=== PATIENT | female | born 1950 | race Caucasian/White ===

== ENCOUNTER 2018-01-21 20:27 | Inpatient (IN) ==
[2018-01-21 21:54] LABS: Basophils % 0.3 % (0.0-0.8); Eosinophils # 0.1 10*3/uL (0.0-0.87); Eosinophils % 0.7 % (0.00-10.9); Hematocrit 31.8 VOL% (35.7-47.0); Hemoglobin 10.6 GM/DL (12.0-16.0); Immature Granulocytes % 0.3 %; Immature Granulocytes Absolute 0.02 #; Lymphocytes # 0.7 10*3/uL (1.4-4.0); Lymphocytes % 8.8 % (21.3-54.2); Mean Corpuscular HGB Conc 33.3 GM/DL (32-36); Mean Corpuscular Hemoglobin 31 PG (27-34); Mean Corpuscular Volume 92.7 FL (87-102); Mean Platelet Volume 10.5 FL (9.6-12.0); Monocytes # 0.4 10*3/uL (0.11-0.8); Monocytes % 5.5 % (1.7-12.7); Neutrophils # 6.5 10*3/uL (1.4-7.4); Neutrophils % 84.4 % (38.7-73.9); Platelet Count 215 T/CUMM (130-400); Red Blood Count 3.43 MC/CUMM (3.8-5.5); Red Cell Distribution Width 12.9 % (9.3-17.3); White Blood Count 7.6 T/CUMM (4-12)
[2018-01-21 22:09] LABS: Alanine Aminotransferase 24 U/L (13-56); Albumin 3.2 G/DL (3.4-5.0); Alkaline Phosphatase 111 U/L (45-117); Aspartate Amino Transferase 29 U/L (0-37); Blood Urea Nitrogen 12 MG/DL (7-18); Calcium 8.6 MG/DL (8.5-10.1); Glucose 333 MG/DL (74-106); Osmolality,Calculated 287.7 MOS/KG (273-304); Potassium 3.9 MMOL/L (3.5-5.1); Sodium 138 MMOL/L (136-145); Total Protein 6.3 G/DL (6.4-8.3)
[2018-01-21 22:11] LABS: Troponin I 0.144 NG/ML (0.00-0.045)
[2018-01-21 22:14] LABS: INR 0.9; PT Patient Result 9.6 SECS; Partial Thromboplastin Time 21.9 SECS (0-40)
[2018-01-21 22:33] LABS: Apearance,Urine CLEAR (Clear); Bilirubin,Urine Negative (Negative); Blood, Urine Negative (Negative); Glucose,Urine (UA) >=500 mg/dL (Negative); Ketones,Urine 5 mg/dL (Negative); Mucus,Urine Occasional /LPF (Occasional); Nitrite,Urine Negative (Negative); Protein,Urine Negative; RBC,Urine 2 /HPF (0-4); Squamous Epithelial Cell,Urine Occasional /HPF (0-10); Urine Color Straw (Yellow); Urine Specific Gravity 1.017 (1.001-1.035); Urine Urobilinogen < 2.0 EU/DL (0.2-1.0); WBC,Urine 36 /HPF (0-6)
[2018-01-22 10:18] LABS: Blood Urea Nitrogen 10 MG/DL (7-18); Calcium 8.6 MG/DL (8.5-10.1); Glucose 450 MG/DL (74-106); Potassium 3.8 MMOL/L (3.5-5.1); Sodium 136 MMOL/L (136-145)
[2018-01-23 05:17] LABS: Calcium 8.4 MG/DL (8.5-10.1); Osmolality,Calculated 288.5 MOS/KG (273-304); Potassium 3.6 MMOL/L (3.5-5.1)
[2018-01-23 08:23] VITALS: BP 147/78
== END 2018-01-23 11:02 | disposition home or self-care (01) | DRG 292 ==
LOC: EDBD → EDUNIT# → N.ED 20:27 → N.EDINP 22:57 → N.TELES 01-22 00:20
PROVIDERS: ADMIT Internal Medicine Interventional Cardiology; ATTEND Internal Medicine Interventional Cardiology

== ENCOUNTER 2018-05-14 12:10 | Inpatient (IN) ==
[2018-05-14] MEDS ORDERED: FUROSEMIDE 100 MG/10 ML VIAL IV STA (12:31)
[2018-05-14] MEDS ORDERED: hydrALAZINE 20 MG/1 ML VIAL IV STA (12:38)
[2018-05-14] MEDS ORDERED: cloNIDine 0.1 MG TABLET PO STA (12:38)
[2018-05-14 13:22] LABS: Basophils % 0.3 % (0.0-0.8); Eosinophils % 0.1 % (0.00-10.9); Hematocrit 29.9 VOL% (35.7-47.0); Hemoglobin 9.5 GM/DL (12.0-16.0); Immature Granulocytes % 0.4 %; Immature Granulocytes Absolute 0.05 #; Lymphocytes # 0.8 10*3/uL (1.4-4.0); Lymphocytes % 7.5 % (21.3-54.2); Mean Corpuscular HGB Conc 31.8 GM/DL (32-36); Mean Corpuscular Hemoglobin 28 PG (27-34); Mean Corpuscular Volume 86.9 FL (87-102); Mean Platelet Volume 9.9 FL (9.6-12.0); Monocytes % 8.6 % (1.7-12.7); Neutrophils # 9.3 10*3/uL (1.4-7.4); Neutrophils % 83.1 % (38.7-73.9); Platelet Count 272 T/CUMM (130-400); Red Blood Count 3.44 MC/CUMM (3.8-5.5); Red Cell Distribution Width 13.7 % (9.3-17.3); White Blood Count 11.2 T/CUMM (4-12)
[2018-05-14 14:17] LABS: Albumin 2.9 G/DL (3.4-5.0); Bilirubin,Total 1.1 MG/DL (0.2-1.0); Calcium 8.6 MG/DL (8.5-10.1); Osmolality,Calculated 275.9 MOS/KG (273-304); Potassium 3.9 MMOL/L (3.5-5.1); Total Protein 6.7 G/DL (6.4-8.3)
[2018-05-14] MEDS ORDERED: FUROSEMIDE 40 MG/4 ML VIAL IV STA (14:46)
[2018-05-14] MEDS ORDERED: DEXTROSE 50% 25 GM/50 ML VIAL IV PRN ×2 (15:07→17:29)
[2018-05-14] MEDS ORDERED: GLUCAGON 1 MG VIAL IM PRN ×2 (15:07→17:29)
[2018-05-14 15:13] LABS: Apearance,Urine Slightly Hazy (Clear); Bacteria,Urine Occasional /HPF (Few); Bilirubin,Urine Negative (Negative); Blood, Urine Negative (Negative); Glucose,Urine (UA) >=500 mg/dL (Negative); Hyaline Casts,Urine 1 /LPF (0-3); Ketones,Urine Negative (Negative); Mucus,Urine Occasional /LPF (Occasional); Nitrite,Urine Negative (Negative); Protein,Urine Negative; RBC,Urine 2 /HPF (0-4); Renal Epithelial Cells,Urine Occasional /HPF (<1); Squamous Epithelial Cell,Urine Occasional /HPF (0-10); Urine Color Yellow (Yellow); Urine Specific Gravity 1.006 (1.001-1.035); Urine Urobilinogen < 2.0 EU/DL (0.2-1.0); WBC,Urine 34 /HPF (0-6)
[2018-05-14] MEDS ORDERED: CEFTAROLINE 600 MG in SODIUM CHLORIDE 0.9% 100 ML IV STA (15:14)
[2018-05-14] MEDS ORDERED: ONDANSETRON 4 MG/2 ML VIAL IV PRN (17:23)
[2018-05-14] MEDS ORDERED: NITROGLYCERIN SL 0.4 MG TABLET SL PRN (17:29)
[2018-05-14] MEDS: ALBUTEROL/IPRATROPIUM 3 ML NEB RESP TX SCH (19:25)
[2018-05-14] MEDS ORDERED: INSULIN GLARGINE 100 UNIT/ML SUBCUT SCH (21:00)
[2018-05-14] MEDS: LOSARTAN 25 MG TABLET PO SCH (21:48)
[2018-05-14] MEDS: LYSINE 500 MG TABLET PO SCH (21:48)
[2018-05-14] MEDS: VITAMIN E 400 UNIT CAPSULE PO SCH (21:48)
[2018-05-14] MEDS: CARVEDILOL 6.25 MG TABLET PO SCH (21:49)
[2018-05-14] MEDS: GABAPENTIN 100 MG CAPSULE PO SCH (21:49)
[2018-05-14] MEDS: INSULIN REGULAR 100 UNIT/ML SUBCUT SCH (21:49)
[2018-05-14] MEDS: POTASSIUM GLUCONATE 500 MG TABLET PO SCH (21:49)
[2018-05-14] MEDS: ISOSORBIDE MONONITRATE 30 MG TABLET PO SCH (21:49)
[2018-05-14] MEDS: POLYVINYL ALCOHOL 1.4% OPH SOLN 15 ML BOTTLE BOTH EYES SCH (21:50)
[2018-05-14] MEDS: PIPERACILLIN/TAZOBACTAM 3,375 MG in SODIUM CHLORIDE 0.9% 100 ML IV SCH (21:55)
[2018-05-15] MEDS: ALBUTEROL/IPRATROPIUM 3 ML NEB RESP TX SCH ×4 (00:37→19:39)
[2018-05-15] MEDS: VANCOMYCIN INJ 750 MG in SODIUM CHLORIDE 0.9% 250 ML IV SCH ×2 (02:14→14:42)
[2018-05-15] MEDS: PIPERACILLIN/TAZOBACTAM 3,375 MG in SODIUM CHLORIDE 0.9% 100 ML IV SCH ×4 (03:20→18:23)
[2018-05-15 05:25] LABS: Basophils % 0.7 % (0.0-0.8); Eosinophils # 0.1 10*3/uL (0.0-0.87); Hematocrit 26.3 VOL% (35.7-47.0); Hemoglobin 8.1 GM/DL (12.0-16.0); Immature Granulocytes % 0.2 %; Immature Granulocytes Absolute 0.01 #; Lymphocytes # 0.9 10*3/uL (1.4-4.0); Lymphocytes % 17.2 % (21.3-54.2); Mean Corpuscular HGB Conc 30.8 GM/DL (32-36); Mean Corpuscular Hemoglobin 27 PG (27-34); Mean Corpuscular Volume 87.7 FL (87-102); Mean Platelet Volume 10.2 FL (9.6-12.0); Monocytes # 0.7 10*3/uL (0.11-0.8); Monocytes % 12.1 % (1.7-12.7); Neutrophils # 3.7 10*3/uL (1.4-7.4); Neutrophils % 67.8 % (38.7-73.9); Platelet Count 253 T/CUMM (130-400); Red Cell Distribution Width 13.9 % (9.3-17.3); White Blood Count 5.5 T/CUMM (4-12)
[2018-05-15 05:39] LABS: Potassium 3.4 MMOL/L (3.5-5.1)
[2018-05-15] MEDS ORDERED: INSULIN DETEMIR 100 UNIT/ML SUBCUT SCH (07:30)
[2018-05-15] MEDS: LYSINE 500 MG TABLET PO SCH ×2 (08:49→22:08)
[2018-05-15] MEDS: CALCIUM (CARBONATE)/VITAMIN D 500 MG-200 UNIT TABLET PO SCH (08:49)
[2018-05-15] MEDS: ASPIRIN EC 81 MG TABLET PO SCH (08:50)
[2018-05-15] MEDS: GABAPENTIN 100 MG CAPSULE PO SCH ×2 (08:50→22:08)
[2018-05-15] MEDS: PANTOPRAZOLE 40 MG TABLET PO SCH (08:50)
[2018-05-15] MEDS: SIMVASTATIN 40 MG TABLET PO SCH (08:50)
[2018-05-15] MEDS: ASCORBIC ACID 500 MG TABLET PO SCH (08:50)
[2018-05-15] MEDS: FUROSEMIDE 80 MG TABLET PO SCH (08:50)
[2018-05-15] MEDS: CLOPIDOGREL 75 MG TABLET PO SCH (08:50)
[2018-05-15] MEDS: CARVEDILOL 6.25 MG TABLET PO SCH ×2 (08:51→22:07)
[2018-05-15] MEDS: MULTIVITAMIN (OCUVITE) TABLET PO SCH (08:51)
[2018-05-15] MEDS ORDERED: PANTOPRAZOLE 40 MG TABLET PO SCH (09:00)
[2018-05-15] MEDS: INSULIN REGULAR 100 UNIT/ML SUBCUT SCH ×4 (10:16→22:08)
[2018-05-15] MEDS: INSULIN GLARGINE 100 UNIT/ML SUBCUT SCH (11:01)
[2018-05-15] MEDS ORDERED: INSULIN GLARGINE 100 UNIT/ML SUBCUT SCH (17:30)
[2018-05-15] MEDS: VITAMIN E 400 UNIT CAPSULE PO SCH (22:07)
[2018-05-15] MEDS: LOSARTAN 25 MG TABLET PO SCH (22:07)
[2018-05-15] MEDS: POTASSIUM GLUCONATE 500 MG TABLET PO SCH (22:08)
[2018-05-15] MEDS: POLYVINYL ALCOHOL 1.4% OPH SOLN 15 ML BOTTLE BOTH EYES SCH (22:09)
[2018-05-15] MEDS: ISOSORBIDE MONONITRATE 30 MG TABLET PO SCH (22:09)
[2018-05-16] MEDS: ALBUTEROL/IPRATROPIUM 3 ML NEB RESP TX SCH ×4 (00:38→19:23)
[2018-05-16] MEDS: VANCOMYCIN INJ 750 MG in SODIUM CHLORIDE 0.9% 250 ML IV SCH ×2 (03:14→16:38)
[2018-05-16 05:32] LABS: Calcium 7.9 MG/DL (8.5-10.1); Potassium 3.3 MMOL/L (3.5-5.1)
[2018-05-16] MEDS: PIPERACILLIN/TAZOBACTAM 3,375 MG in SODIUM CHLORIDE 0.9% 100 ML IV SCH ×3 (06:46→21:16)
[2018-05-16 06:48] LABS: Basophils % 0.6 % (0.0-0.8); Eosinophils # 0.3 10*3/uL (0.0-0.87); Eosinophils % 4.7 % (0.00-10.9); Hematocrit 26.5 VOL% (35.7-47.0); Hemoglobin 8.3 GM/DL (12.0-16.0); Immature Granulocytes % 0.3 %; Immature Granulocytes Absolute 0.02 #; Lymphocytes # 1.2 10*3/uL (1.4-4.0); Lymphocytes % 19.3 % (21.3-54.2); Mean Corpuscular HGB Conc 31.3 GM/DL (32-36); Mean Corpuscular Hemoglobin 28 PG (27-34); Mean Corpuscular Volume 88.3 FL (87-102); Mean Platelet Volume 10.4 FL (9.6-12.0); Monocytes # 0.6 10*3/uL (0.11-0.8); Monocytes % 10.1 % (1.7-12.7); Neutrophils # 4.1 10*3/uL (1.4-7.4); Platelet Count 264 T/CUMM (130-400); Red Cell Distribution Width 13.7 % (9.3-17.3); White Blood Count 6.3 T/CUMM (4-12)
[2018-05-16] MEDS: CARVEDILOL 6.25 MG TABLET PO SCH ×3 (07:36→21:16)
[2018-05-16] MEDS ORDERED: ROPIVACAINE 0.5% 30 ML VIAL ONE (08:00)
[2018-05-16] MEDS ORDERED: LIDOCAINE 1%/EPI INJ 20 ML VIAL ONE (08:00)
[2018-05-16] MEDS ORDERED: MIDAZOLAM 2 MG/2 ML VIAL ONE ×2 (08:10→12:48)
[2018-05-16] MEDS ORDERED: MIDAZOLAM 2 MG/2 ML VIAL IV ONE (08:27)
[2018-05-16] MEDS: INSULIN REGULAR 100 UNIT/ML SUBCUT SCH ×4 (09:58→21:23)
[2018-05-16] MEDS: ASCORBIC ACID 500 MG TABLET PO SCH (10:39)
[2018-05-16] MEDS: CLOPIDOGREL 75 MG TABLET PO SCH (10:39)
[2018-05-16] MEDS: PANTOPRAZOLE 40 MG TABLET PO SCH (10:39)
[2018-05-16] MEDS: GABAPENTIN 100 MG CAPSULE PO SCH ×2 (10:39→21:15)
[2018-05-16] MEDS: MULTIVITAMIN (OCUVITE) TABLET PO SCH (10:39)
[2018-05-16] MEDS: FUROSEMIDE 80 MG TABLET PO SCH (10:40)
[2018-05-16] MEDS: SIMVASTATIN 40 MG TABLET PO SCH (10:40)
[2018-05-16] MEDS: POTASSIUM CHLORIDE 20 MEQ TABLET PO SCH ×2 (10:40→21:15)
[2018-05-16] MEDS: ASPIRIN EC 81 MG TABLET PO SCH (10:40)
[2018-05-16] MEDS: CALCIUM (CARBONATE)/VITAMIN D 500 MG-200 UNIT TABLET PO SCH (10:42)
[2018-05-16] MEDS: LYSINE 500 MG TABLET PO SCH ×2 (10:43→21:17)
[2018-05-16] MEDS: INSULIN GLARGINE 100 UNIT/ML SUBCUT SCH (10:43)
[2018-05-16] MEDS ORDERED: fentaNYL 100 MCG/2 ML VIAL ONE (12:48)
[2018-05-16] MEDS: INSULIN LISPRO 100 UNIT/ML SUBCUT SCH (16:38)
[2018-05-16] MEDS: LOSARTAN 25 MG TABLET PO SCH (21:15)
[2018-05-16] MEDS: ISOSORBIDE MONONITRATE 30 MG TABLET PO SCH (21:15)
[2018-05-16] MEDS: VITAMIN E 400 UNIT CAPSULE PO SCH (21:15)
[2018-05-16] MEDS: POTASSIUM GLUCONATE 500 MG TABLET PO SCH (21:15)
[2018-05-16] MEDS: POLYVINYL ALCOHOL 1.4% OPH SOLN 15 ML BOTTLE BOTH EYES SCH (21:16)
[2018-05-17] MEDS: ALBUTEROL/IPRATROPIUM 3 ML NEB RESP TX SCH ×2 (00:19→08:31)
[2018-05-17] MEDS: VANCOMYCIN INJ 750 MG in SODIUM CHLORIDE 0.9% 250 ML IV SCH ×3 (01:49→17:33)
[2018-05-17] MEDS: PIPERACILLIN/TAZOBACTAM 3,375 MG in SODIUM CHLORIDE 0.9% 100 ML IV SCH ×2 (03:03→13:27)
[2018-05-17 05:58] LABS: Basophils % 0.5 % (0.0-0.8); Eosinophils # 0.4 10*3/uL (0.0-0.87); Eosinophils % 6.4 % (0.00-10.9); Hematocrit 28.3 VOL% (35.7-47.0); Hemoglobin 8.8 GM/DL (12.0-16.0); Immature Granulocytes % 0.3 %; Immature Granulocytes Absolute 0.02 #; Lymphocytes # 1.3 10*3/uL (1.4-4.0); Lymphocytes % 19.9 % (21.3-54.2); Mean Corpuscular HGB Conc 31.1 GM/DL (32-36); Mean Corpuscular Hemoglobin 28 PG (27-34); Mean Corpuscular Volume 88.7 FL (87-102); Mean Platelet Volume 9.6 FL (9.6-12.0); Monocytes # 0.6 10*3/uL (0.11-0.8); Monocytes % 9.6 % (1.7-12.7); Neutrophils # 4.1 10*3/uL (1.4-7.4); Neutrophils % 63.3 % (38.7-73.9); Platelet Count 288 T/CUMM (130-400); Red Blood Count 3.19 MC/CUMM (3.8-5.5); Red Cell Distribution Width 13.9 % (9.3-17.3); White Blood Count 6.4 T/CUMM (4-12)
[2018-05-17 06:24] LABS: Calcium 8.4 MG/DL (8.5-10.1); Osmolality,Calculated 281.5 MOS/KG (273-304); Potassium 3.6 MMOL/L (3.5-5.1)
[2018-05-17] MEDS: CALCIUM (CARBONATE)/VITAMIN D 500 MG-200 UNIT TABLET PO SCH (09:14)
[2018-05-17] MEDS: ASPIRIN EC 81 MG TABLET PO SCH (09:14)
[2018-05-17] MEDS: ASCORBIC ACID 500 MG TABLET PO SCH (09:14)
[2018-05-17] MEDS: LYSINE 500 MG TABLET PO SCH ×2 (09:14→21:58)
[2018-05-17] MEDS: FUROSEMIDE 80 MG TABLET PO SCH (09:14)
[2018-05-17] MEDS: POTASSIUM CHLORIDE 20 MEQ TABLET PO SCH ×2 (09:14→21:59)
[2018-05-17] MEDS: PANTOPRAZOLE 40 MG TABLET PO SCH (09:14)
[2018-05-17] MEDS: CLOPIDOGREL 75 MG TABLET PO SCH (09:14)
[2018-05-17] MEDS: CARVEDILOL 6.25 MG TABLET PO SCH ×2 (09:14→21:59)
[2018-05-17] MEDS: GABAPENTIN 100 MG CAPSULE PO SCH ×2 (09:14→21:58)
[2018-05-17] MEDS: MULTIVITAMIN (OCUVITE) TABLET PO SCH (09:14)
[2018-05-17] MEDS: SIMVASTATIN 40 MG TABLET PO SCH (09:15)
[2018-05-17] MEDS: INSULIN GLARGINE 100 UNIT/ML SUBCUT SCH (09:15)
[2018-05-17] MEDS: INSULIN REGULAR 100 UNIT/ML SUBCUT SCH ×4 (09:15→22:04)
[2018-05-17] MEDS: INSULIN LISPRO 100 UNIT/ML SUBCUT SCH ×4 (09:15→21:57)
[2018-05-17] MEDS: CIPROFLOXACIN 500 MG TABLET PO SCH ×2 (12:47→21:58)
[2018-05-17] MEDS: LOSARTAN 25 MG TABLET PO SCH (21:58)
[2018-05-17] MEDS: ISOSORBIDE MONONITRATE 30 MG TABLET PO SCH (21:58)
[2018-05-17] MEDS: POTASSIUM GLUCONATE 500 MG TABLET PO SCH (21:58)
[2018-05-17] MEDS: VITAMIN E 400 UNIT CAPSULE PO SCH (21:58)
[2018-05-17] MEDS: POLYVINYL ALCOHOL 1.4% OPH SOLN 15 ML BOTTLE BOTH EYES SCH (21:59)
[2018-05-18] MEDS: VANCOMYCIN INJ 750 MG in SODIUM CHLORIDE 0.9% 250 ML IV SCH ×3 (00:24→17:10)
[2018-05-18 06:54] LABS: Calcium 8.5 MG/DL (8.5-10.1); Osmolality,Calculated 278.4 MOS/KG (273-304); Potassium 3.8 MMOL/L (3.5-5.1)
[2018-05-18] MEDS: CARVEDILOL 6.25 MG TABLET PO SCH ×2 (10:28→21:38)
[2018-05-18] MEDS: SIMVASTATIN 40 MG TABLET PO SCH (10:28)
[2018-05-18] MEDS: ASCORBIC ACID 500 MG TABLET PO SCH (10:28)
[2018-05-18] MEDS: LYSINE 500 MG TABLET PO SCH ×2 (10:29→21:37)
[2018-05-18] MEDS: GABAPENTIN 100 MG CAPSULE PO SCH ×2 (10:29→21:37)
[2018-05-18] MEDS: PANTOPRAZOLE 40 MG TABLET PO SCH (10:29)
[2018-05-18] MEDS: CIPROFLOXACIN 500 MG TABLET PO SCH ×2 (10:29→21:38)
[2018-05-18] MEDS: CLOPIDOGREL 75 MG TABLET PO SCH (10:29)
[2018-05-18] MEDS: MULTIVITAMIN (OCUVITE) TABLET PO SCH (10:30)
[2018-05-18] MEDS: CALCIUM (CARBONATE)/VITAMIN D 500 MG-200 UNIT TABLET PO SCH (10:30)
[2018-05-18] MEDS: POTASSIUM CHLORIDE 20 MEQ TABLET PO SCH ×2 (10:30→21:37)
[2018-05-18] MEDS: ASPIRIN EC 81 MG TABLET PO SCH (10:30)
[2018-05-18] MEDS: FUROSEMIDE 80 MG TABLET PO SCH (10:30)
[2018-05-18] MEDS: INSULIN REGULAR 100 UNIT/ML SUBCUT SCH ×4 (10:31→21:41)
[2018-05-18] MEDS: INSULIN LISPRO 100 UNIT/ML SUBCUT SCH ×2 (10:31→12:25)
[2018-05-18] MEDS: INSULIN GLARGINE 100 UNIT/ML SUBCUT SCH ×2 (10:50→21:43)
[2018-05-18] MEDS: VITAMIN E 400 UNIT CAPSULE PO SCH (21:37)
[2018-05-18] MEDS: LOSARTAN 25 MG TABLET PO SCH (21:37)
[2018-05-18] MEDS: POTASSIUM GLUCONATE 500 MG TABLET PO SCH (21:37)
[2018-05-18] MEDS: POLYVINYL ALCOHOL 1.4% OPH SOLN 15 ML BOTTLE BOTH EYES SCH (21:38)
[2018-05-18] MEDS: ISOSORBIDE MONONITRATE 30 MG TABLET PO SCH (21:38)
[2018-05-19 05:10] LABS: Calcium 8.7 MG/DL (8.5-10.1); Osmolality,Calculated 285.3 MOS/KG (273-304)
[2018-05-19] MEDS: VANCOMYCIN INJ 750 MG in SODIUM CHLORIDE 0.9% 250 ML IV SCH ×2 (05:56→16:20)
[2018-05-19] MEDS: INSULIN REGULAR 100 UNIT/ML SUBCUT SCH ×2 (07:37→11:58)
[2018-05-19] MEDS: ASCORBIC ACID 500 MG TABLET PO SCH (08:14)
[2018-05-19] MEDS: GABAPENTIN 100 MG CAPSULE PO SCH ×2 (08:14→21:08)
[2018-05-19] MEDS: CLOPIDOGREL 75 MG TABLET PO SCH (08:14)
[2018-05-19] MEDS: CALCIUM (CARBONATE)/VITAMIN D 500 MG-200 UNIT TABLET PO SCH (08:14)
[2018-05-19] MEDS: CARVEDILOL 6.25 MG TABLET PO SCH ×2 (08:14→21:07)
[2018-05-19] MEDS: FUROSEMIDE 80 MG TABLET PO SCH (08:15)
[2018-05-19] MEDS: MULTIVITAMIN (OCUVITE) TABLET PO SCH (08:15)
[2018-05-19] MEDS: CIPROFLOXACIN 500 MG TABLET PO SCH ×2 (08:15→21:07)
[2018-05-19] MEDS: SIMVASTATIN 40 MG TABLET PO SCH (08:15)
[2018-05-19] MEDS: PANTOPRAZOLE 40 MG TABLET PO SCH (08:15)
[2018-05-19] MEDS: INSULIN GLARGINE 100 UNIT/ML SUBCUT SCH ×2 (08:15→21:07)
[2018-05-19] MEDS: POTASSIUM CHLORIDE 20 MEQ TABLET PO SCH ×2 (08:15→21:07)
[2018-05-19] MEDS: ASPIRIN EC 81 MG TABLET PO SCH (08:15)
[2018-05-19] MEDS: LYSINE 500 MG TABLET PO SCH ×2 (08:16→21:11)
[2018-05-19] MEDS ORDERED: TUBERCULIN SKIN TEST 0.1 ML SYRINGE INTRADERM ONE (15:46)
[2018-05-19] MEDS: VITAMIN E 400 UNIT CAPSULE PO SCH (21:07)
[2018-05-19] MEDS: LOSARTAN 25 MG TABLET PO SCH (21:07)
[2018-05-19] MEDS: ISOSORBIDE MONONITRATE 30 MG TABLET PO SCH (21:07)
[2018-05-19] MEDS: POTASSIUM GLUCONATE 500 MG TABLET PO SCH (21:07)
[2018-05-19] MEDS: POLYVINYL ALCOHOL 1.4% OPH SOLN 15 ML BOTTLE BOTH EYES SCH (21:08)
[2018-05-20] MEDS: VANCOMYCIN INJ 750 MG in SODIUM CHLORIDE 0.9% 250 ML IV SCH (04:52)
[2018-05-20] MEDS: INSULIN GLARGINE 100 UNIT/ML SUBCUT SCH (08:58)
[2018-05-20] MEDS: ASCORBIC ACID 500 MG TABLET PO SCH (08:59)
[2018-05-20] MEDS: CLOPIDOGREL 75 MG TABLET PO SCH (08:59)
[2018-05-20] MEDS: FUROSEMIDE 80 MG TABLET PO SCH (08:59)
[2018-05-20] MEDS: CIPROFLOXACIN 500 MG TABLET PO SCH (08:59)
[2018-05-20] MEDS: GABAPENTIN 100 MG CAPSULE PO SCH (08:59)
[2018-05-20] MEDS: ASPIRIN EC 81 MG TABLET PO SCH (08:59)
[2018-05-20] MEDS: SIMVASTATIN 40 MG TABLET PO SCH (08:59)
[2018-05-20] MEDS: MULTIVITAMIN (OCUVITE) TABLET PO SCH (08:59)
[2018-05-20] MEDS: POTASSIUM CHLORIDE 20 MEQ TABLET PO SCH (08:59)
[2018-05-20] MEDS: CALCIUM (CARBONATE)/VITAMIN D 500 MG-200 UNIT TABLET PO SCH (08:59)
[2018-05-20] MEDS: LYSINE 500 MG TABLET PO SCH (09:00)
[2018-05-20] MEDS: PANTOPRAZOLE 40 MG TABLET PO SCH (09:00)
[2018-05-20] MEDS: CARVEDILOL 6.25 MG TABLET PO SCH (09:00)
[2018-05-20] MEDS ORDERED: INSULIN REGULAR 100 UNIT/ML SUBCUT SCH (11:30)
[2018-05-20] MEDS ORDERED: VANCOMYCIN INJ 1,000 MG in SODIUM CHLORIDE 0.9% 250 ML IV SCH ×2 (15:00→17:00)
[2018-05-20 15:36] VITALS: BP 92/61
== END 2018-05-20 16:14 | DRG 623 ==
LOC: N.ED 12:10 → SUATTDRO 17:23 → N.EDINP 17:23 → N.5E 18:13
PROVIDERS: ADMIT Internal Medicine; ATTEND Hospitalist

== ENCOUNTER 2018-05-31 15:50 | Inpatient (IN) ==
[2018-05-31 16:17] LABS: Basophils % 0.3 % (0.0-0.8); Eosinophils # 0.1 10*3/uL (0.0-0.87); Eosinophils % 1.1 % (0.00-10.9); Hemoglobin 8.4 GM/DL (12.0-16.0); Immature Granulocytes % 0.4 %; Immature Granulocytes Absolute 0.03 #; Lymphocytes # 1.1 10*3/uL (1.4-4.0); Lymphocytes % 15.6 % (21.3-54.2); Mean Corpuscular Hemoglobin 27 PG (27-34); Mean Corpuscular Volume 89.5 FL (87-102); Mean Platelet Volume 10.5 FL (9.6-12.0); Monocytes # 0.9 10*3/uL (0.11-0.8); Monocytes % 12.5 % (1.7-12.7); Neutrophils # 5.1 10*3/uL (1.4-7.4); Neutrophils % 70.1 % (38.7-73.9); Platelet Count 217 T/CUMM (130-400); Red Blood Count 3.13 MC/CUMM (3.8-5.5); Red Cell Distribution Width 14.1 % (9.3-17.3); White Blood Count 7.3 T/CUMM (4-12)
[2018-05-31 16:29] LABS: INR 0.9; Partial Thromboplastin Time < 21.0 SECS (0-40)
[2018-05-31 16:49] LABS: Albumin 3.1 G/DL (3.4-5.0); Bilirubin,Total 0.7 MG/DL (0.2-1.0); Calcium 8.5 MG/DL (8.5-10.1); Osmolality,Calculated 285.2 MOS/KG (273-304); Thyroid Stimulating Hormone 6.37 uIU/ml (0.358-3.74); Total Protein 6.4 G/DL (6.4-8.3)
[2018-05-31] MEDS ORDERED: DEXTROSE 50% 25 GM/50 ML VIAL IV STA (16:57)
[2018-05-31 16:58] LABS: Potassium 6.1 MMOL/L (3.5-5.1)
[2018-05-31] MEDS ORDERED: INSULIN REGULAR 100 UNIT/ML IV STA (16:58)
[2018-05-31] MEDS ORDERED: SODIUM BICARBONATE 50 MEQ/50 ML VIAL IV STA (16:58)
[2018-05-31] MEDS ORDERED: SODIUM CHLORIDE 0.9% 1,000 ML IV STA (17:00)
[2018-05-31 17:01] LABS: Barbiturates Screen,Urine Negative (Negative); Benzodiazepines Screen,Urine Negative (Negative); Cannabinoid Screen,Urine Negative (Negative); Opiate Screen,Urine Negative (Negative); Phencyclidine Screen,Urine Negative (Negative)
[2018-05-31] MEDS ORDERED: SODIUM BICARBONATE 50 MEQ/50 ML SYRINGE IV ONE (17:14)
[2018-05-31] MEDS ORDERED: DEXTROSE 50% 25 GM/50 ML SYRINGE IV ONE (17:14)
[2018-05-31] MEDS ORDERED: ATROPINE 1 MG/10 ML SYRINGE IV PRN (17:32)
[2018-05-31] MEDS ORDERED: DOPamine 800 MG/250 ML PREMIX IV PRN (17:32)
[2018-05-31] MEDS ORDERED: SODIUM POLYSTYRENE SULFATE 15 GM/60 ML BOTTLE PO STA (17:34)
[2018-05-31] MEDS ORDERED: ACETAMINOPHEN 325 MG TABLET PO PRN (18:03)
[2018-05-31] MEDS ORDERED: ALBUTEROL 2.5 MG/3 ML NEB RESP TX PRN (18:03)
[2018-05-31] MEDS ORDERED: GLUCAGON 1 MG VIAL IM PRN (18:08)
[2018-05-31] MEDS ORDERED: DEXTROSE 50% 25 GM/50 ML VIAL IV PRN (18:08)
[2018-05-31] MEDS: ONDANSETRON 4 MG/2 ML VIAL IV PRN (19:45)
[2018-05-31 19:48] LABS: Hepatitis A Ab IgM Quant 0.28 Index; Hepatitis A Ab IgM Result Negative (Negative); Hepatitis B Core IgM Quant 0.06 Index; Hepatitis B Core IgM Result Negative (Negative); Hepatitis B Surface Ag Quant < 0.10 Index; Hepatitis B Surface Ag Result Negative (Negative); Hepatitis C Virus Ab Quant 0.05 Index; Hepatitis C Virus Ab Result Negative (Negative)
[2018-05-31] MEDS: INSULIN LISPRO 100 UNIT/ML SUBCUT SCH (20:50)
[2018-05-31 21:50] LABS: ABG Base Excess 0.6 MMOL/L (-2.5-2.5); ABG HCO3 24.8 MMOL/L (20-26); ABG Oxygen Saturation 93.5 % (95-100); ABG PCO2 52.4 MM HG (35-48); ABG PH 7.324 (7.35-7.45); ABG PO2 78.6 MM HG (80-95); ABG TCO2 25.1 MMOL/L (23-27); Allen Test Positive; Pt O2 Delivery Device Simple Mask
[2018-05-31] MEDS: PANTOPRAZOLE 40 MG VIAL IV SCH (23:14)
[2018-05-31] MEDS: ENOXAPARIN 60 MG/0.6 ML SYRINGE SUBCUT SCH (23:15)
[2018-06-01 00:24] LABS: Calcium 8.3 MG/DL (8.5-10.1); Osmolality,Calculated 284.1 MOS/KG (273-304); Potassium 5.5 MMOL/L (3.5-5.1)
[2018-06-01 05:30] LABS: Risk Ratio 1.28; VLDL CHOLESTEROL 6.6 MG/DL
[2018-06-01 05:33] LABS: Albumin 3.2 G/DL (3.4-5.0); Bilirubin,Direct 0.26 MG/DL (0.0-0.20); Bilirubin,Indirect 1.1 MG/DL (0.0-1.0); Bilirubin,Total 1.4 MG/DL (0.2-1.0); Total Protein 7.2 G/DL (6.4-8.3)
[2018-06-01 05:40] LABS: Amorphous Crystals,Urine Many /HPF (Few); Apearance,Urine CLOUDY (Clear); Bilirubin,Urine Negative (Negative); Blood, Urine Negative (Negative); Glucose,Urine (UA) 50 mg/dL (Negative); Ketones,Urine Negative (Negative); Nitrite,Urine Negative (Negative); Protein,Urine Negative; Urine Color Yellow (Yellow); Urine Specific Gravity 1.013 (1.001-1.035); Urine Urobilinogen < 2.0 EU/DL (0.2-1.0)
[2018-06-01 05:47] LABS: Calcium 8.6 MG/DL (8.5-10.1); Osmolality,Calculated 289.7 MOS/KG (273-304); Potassium 4.9 MMOL/L (3.5-5.1)
[2018-06-01] MEDS ORDERED: DEXTROSE 50% 25 GM/50 ML SYRINGE IV ONE (05:50)
[2018-06-01] MEDS ORDERED: DEXTROSE 50% 25 GM/50 ML SYRINGE IV PRN (06:00)
[2018-06-01] MEDS: INSULIN LISPRO 100 UNIT/ML SUBCUT SCH ×4 (07:30→20:42)
[2018-06-01] MEDS ORDERED: PANTOPRAZOLE 40 MG TABLET PO SCH (09:00)
[2018-06-01] MEDS: PANTOPRAZOLE 40 MG VIAL IV SCH (11:14)
[2018-06-01] MEDS ORDERED: NITROGLYCERIN SL 0.4 MG TABLET SL PRN (11:21)
[2018-06-01] MEDS ORDERED: INSULIN LISPRO 100 UNIT/ML SUBCUT PRN (11:21)
[2018-06-01] MEDS ORDERED: VANCOMYCIN 1,000 MG VIAL IV SCH (11:30)
[2018-06-01] MEDS ORDERED: VANCOMYCIN INJ 1,000 MG in SODIUM CHLORIDE 0.9% 250 ML IV PRN (11:59)
[2018-06-01] MEDS ORDERED: VANCOMYCIN INJ 1,000 MG in SODIUM CHLORIDE 0.9% 250 ML IV ONE (12:00)
[2018-06-01] MEDS: CALCIUM (CARBONATE)/VITAMIN D 500 MG-200 UNIT TABLET PO SCH (12:09)
[2018-06-01] MEDS: INSULIN GLARGINE 100 UNIT/ML SUBCUT SCH (12:52)
[2018-06-01] MEDS: CIPROFLOXACIN 500 MG TABLET PO SCH ×2 (12:53→20:42)
[2018-06-01] MEDS: ASCORBIC ACID 500 MG TABLET PO SCH (12:53)
[2018-06-01] MEDS: PANTOPRAZOLE 40 MG TABLET PO SCH (12:53)
[2018-06-01] MEDS: ASPIRIN EC 81 MG TABLET PO SCH (12:53)
[2018-06-01] MEDS: CLOPIDOGREL 75 MG TABLET PO SCH (12:53)
[2018-06-01 13:27] LABS: Basophils # 0.1 10*3/uL (0.0-0.2); Basophils % 0.4 % (0.0-0.8); Eosinophils # 0.1 10*3/uL (0.0-0.87); Eosinophils % 0.4 % (0.00-10.9); Hematocrit 32.8 VOL% (35.7-47.0); Immature Granulocytes % 0.5 %; Immature Granulocytes Absolute 0.07 #; Lymphocytes % 7.1 % (21.3-54.2); Mean Corpuscular HGB Conc 30.5 GM/DL (32-36); Mean Corpuscular Hemoglobin 27 PG (27-34); Mean Corpuscular Volume 88.9 FL (87-102); Mean Platelet Volume 10.3 FL (9.6-12.0); Monocytes # 0.9 10*3/uL (0.11-0.8); Monocytes % 6.8 % (1.7-12.7); Neutrophils # 11.7 10*3/uL (1.4-7.4); Neutrophils % 84.8 % (38.7-73.9); Platelet Count 289 T/CUMM (130-400); Red Blood Count 3.69 MC/CUMM (3.8-5.5); Red Cell Distribution Width 14.3 % (9.3-17.3); White Blood Count 13.8 T/CUMM (4-12)
[2018-06-01] MEDS ORDERED: INSULIN GLARGINE 100 UNIT/ML SUBCUT SCH (17:00)
[2018-06-01] MEDS: SODIUM CHLORIDE 0.45% 1,000 ML IV SCH (17:28)
[2018-06-01] MEDS: POLYVINYL ALCOHOL 1.4% OPH SOLN 15 ML BOTTLE BOTH EYES SCH (20:42)
[2018-06-01] MEDS ORDERED: SIMVASTATIN 40 MG TABLET PO SCH (21:00)
[2018-06-01] MEDS: ENOXAPARIN 60 MG/0.6 ML SYRINGE SUBCUT SCH (22:29)
[2018-06-02 04:43] LABS: Basophils # 0.1 10*3/uL (0.0-0.2); Basophils % 0.5 % (0.0-0.8); Eosinophils # 0.1 10*3/uL (0.0-0.87); Eosinophils % 1.4 % (0.00-10.9); Hematocrit 27.1 VOL% (35.7-47.0); Hemoglobin 8.3 GM/DL (12.0-16.0); Immature Granulocytes % 0.5 %; Immature Granulocytes Absolute 0.05 #; Lymphocytes % 10.6 % (21.3-54.2); Mean Corpuscular HGB Conc 30.6 GM/DL (32-36); Mean Corpuscular Hemoglobin 27 PG (27-34); Mean Corpuscular Volume 89.1 FL (87-102); Mean Platelet Volume 10.7 FL (9.6-12.0); Monocytes % 10.2 % (1.7-12.7); Neutrophils # 7.2 10*3/uL (1.4-7.4); Neutrophils % 76.8 % (38.7-73.9); Platelet Count 220 T/CUMM (130-400); Red Blood Count 3.04 MC/CUMM (3.8-5.5); Red Cell Distribution Width 14.4 % (9.3-17.3); White Blood Count 9.4 T/CUMM (4-12)
[2018-06-02 05:17] LABS: Albumin 2.7 G/DL (3.4-5.0)
[2018-06-02 05:20] LABS: Bilirubin,Direct 0.21 MG/DL (0.0-0.20)
[2018-06-02 05:24] LABS: Bilirubin,Indirect 0.6 MG/DL (0.0-1.0); Bilirubin,Total 0.8 MG/DL (0.2-1.0); Total Protein 6.1 G/DL (6.4-8.3)
[2018-06-02 05:26] LABS: Calcium 8.2 MG/DL (8.5-10.1); Osmolality,Calculated 291.4 MOS/KG (273-304); Potassium 4.4 MMOL/L (3.5-5.1)
[2018-06-02] MEDS: SODIUM CHLORIDE 0.45% 1,000 ML IV SCH (05:43)
[2018-06-02] MEDS: ASCORBIC ACID 500 MG TABLET PO SCH (08:05)
[2018-06-02] MEDS: ASPIRIN EC 81 MG TABLET PO SCH (08:05)
[2018-06-02] MEDS: CALCIUM (CARBONATE)/VITAMIN D 500 MG-200 UNIT TABLET PO SCH (08:06)
[2018-06-02] MEDS: CIPROFLOXACIN 500 MG TABLET PO SCH ×2 (08:06→20:28)
[2018-06-02] MEDS: CLOPIDOGREL 75 MG TABLET PO SCH (08:06)
[2018-06-02] MEDS: PANTOPRAZOLE 40 MG TABLET PO SCH (08:06)
[2018-06-02] MEDS: INSULIN GLARGINE 100 UNIT/ML SUBCUT SCH ×2 (08:06→22:34)
[2018-06-02] MEDS: INSULIN LISPRO 100 UNIT/ML SUBCUT SCH ×2 (08:07→11:52)
[2018-06-02] MEDS ORDERED: POTASSIUM CHLORIDE RIDER 10 MEQ in PREMIX 1 EACH IV PRN (10:46)
[2018-06-02] MEDS ORDERED: MAGNESIUM SULF RIDER 2 GM in PREMIX 1 EACH IV PRN (10:46)
[2018-06-02] MEDS: INSULIN REGULAR 100 UNIT/ML SUBCUT SCH ×2 (16:57→22:32)
[2018-06-02] MEDS: POLYVINYL ALCOHOL 1.4% OPH SOLN 15 ML BOTTLE BOTH EYES SCH (20:28)
[2018-06-02] MEDS: ENOXAPARIN 60 MG/0.6 ML SYRINGE SUBCUT SCH (22:00)
[2018-06-03 03:48] LABS: Basophils % 0.3 % (0.0-0.8); Eosinophils # 0.1 10*3/uL (0.0-0.87); Eosinophils % 1.8 % (0.00-10.9); Hematocrit 24.8 VOL% (35.7-47.0); Hemoglobin 7.6 GM/DL (12.0-16.0); Immature Granulocytes % 0.3 %; Immature Granulocytes Absolute 0.02 #; Lymphocytes # 1.1 10*3/uL (1.4-4.0); Lymphocytes % 16.5 % (21.3-54.2); Mean Corpuscular HGB Conc 30.6 GM/DL (32-36); Mean Corpuscular Hemoglobin 27 PG (27-34); Mean Corpuscular Volume 89.5 FL (87-102); Mean Platelet Volume 10.7 FL (9.6-12.0); Monocytes # 0.9 10*3/uL (0.11-0.8); Monocytes % 13.2 % (1.7-12.7); Neutrophils # 4.6 10*3/uL (1.4-7.4); Neutrophils % 67.9 % (38.7-73.9); Platelet Count 196 T/CUMM (130-400); Red Blood Count 2.77 MC/CUMM (3.8-5.5); Red Cell Distribution Width 14.5 % (9.3-17.3); White Blood Count 6.7 T/CUMM (4-12)
[2018-06-03 04:17] LABS: Calcium 8.4 MG/DL (8.5-10.1); Osmolality,Calculated 276.8 MOS/KG (273-304); Potassium 4.2 MMOL/L (3.5-5.1)
[2018-06-03 04:40] LABS: Albumin 2.7 G/DL (3.4-5.0); Bilirubin,Direct 0.22 MG/DL (0.0-0.20); Bilirubin,Indirect 0.6 MG/DL (0.0-1.0); Bilirubin,Total 0.8 MG/DL (0.2-1.0); Total Protein 6.3 G/DL (6.4-8.3)
[2018-06-03] MEDS ORDERED: DEXTROSE 5% NACL 0.45% 1,000 ML IV SCH (06:00)
[2018-06-03] MEDS: CLOPIDOGREL 75 MG TABLET PO SCH (10:25)
[2018-06-03] MEDS: CIPROFLOXACIN 500 MG TABLET PO SCH ×2 (10:25→21:12)
[2018-06-03] MEDS: CALCIUM (CARBONATE)/VITAMIN D 500 MG-200 UNIT TABLET PO SCH (10:25)
[2018-06-03] MEDS: ASPIRIN EC 81 MG TABLET PO SCH (10:25)
[2018-06-03] MEDS: ASCORBIC ACID 500 MG TABLET PO SCH (10:25)
[2018-06-03] MEDS: PANTOPRAZOLE 40 MG TABLET PO SCH (10:25)
[2018-06-03] MEDS: VANCOMYCIN INJ 1,000 MG in SODIUM CHLORIDE 0.9% 250 ML IV SCH ×2 (10:35→21:10)
[2018-06-03] MEDS: INSULIN REGULAR 100 UNIT/ML SUBCUT SCH ×4 (10:35→21:31)
[2018-06-03] MEDS ORDERED: diphenhydrAMINE CAP 25 MG CAPSULE PO ONE (12:30)
[2018-06-03] MEDS ORDERED: DIAZEPAM 5 MG TABLET PO ONE (12:30)
[2018-06-03] MEDS ORDERED: LIDOCAINE 1%/EPI INJ 20 ML VIAL ONE (14:39)
[2018-06-03] MEDS ORDERED: HEPARIN/NACL 0.9% 2 UNITS/ML 1,000 ML IV ONE (14:39)
[2018-06-03] MEDS ORDERED: MIDAZOLAM 2 MG/2 ML VIAL ONE (14:50)
[2018-06-03] MEDS ORDERED: fentaNYL 100 MCG/2 ML VIAL ONE (14:51)
[2018-06-03] MEDS ORDERED: FLUMAZENIL 1 MG/10 ML VIAL IV ONE (15:13)
[2018-06-03] MEDS ORDERED: FUROSEMIDE 40 MG/4 ML VIAL IV ONE ×2 (16:15→21:00)
[2018-06-03] MEDS ORDERED: SODIUM CHLORIDE 0.9% 1,000 ML IV PRN (16:16)
[2018-06-03] MEDS ORDERED: ALUMINUM/MAGNES/SIMETH MAX STR 30 ML UDCUP PO PRN (19:45)
[2018-06-03] MEDS: ONDANSETRON 4 MG/2 ML VIAL IV PRN (19:55)
[2018-06-03] MEDS: ENOXAPARIN 60 MG/0.6 ML SYRINGE SUBCUT SCH (21:12)
[2018-06-03] MEDS: INSULIN GLARGINE 100 UNIT/ML SUBCUT SCH (21:12)
[2018-06-03] MEDS: POLYVINYL ALCOHOL 1.4% OPH SOLN 15 ML BOTTLE BOTH EYES SCH (21:28)
[2018-06-04] MEDS ORDERED: FUROSEMIDE 40 MG/4 ML VIAL ONE (03:09)
[2018-06-04 07:48] LABS: Basophils # 0.1 10*3/uL (0.0-0.2); Basophils % 0.9 % (0.0-0.8); Eosinophils # 0.3 10*3/uL (0.0-0.87); Eosinophils % 4.1 % (0.00-10.9); Hemoglobin 11.4 GM/DL (12.0-16.0); Immature Granulocytes % 0.4 %; Immature Granulocytes Absolute 0.03 #; Lymphocytes # 0.9 10*3/uL (1.4-4.0); Lymphocytes % 13.3 % (21.3-54.2); Mean Corpuscular HGB Conc 30.8 GM/DL (32-36); Mean Corpuscular Hemoglobin 28 PG (27-34); Mean Corpuscular Volume 89.4 FL (87-102); Mean Platelet Volume 10.5 FL (9.6-12.0); Monocytes # 0.8 10*3/uL (0.11-0.8); Monocytes % 12.1 % (1.7-12.7); Neutrophils # 4.7 10*3/uL (1.4-7.4); Neutrophils % 69.2 % (38.7-73.9); Platelet Count 213 T/CUMM (130-400); Red Blood Count 4.14 MC/CUMM (3.8-5.5); Red Cell Distribution Width 14.3 % (9.3-17.3); White Blood Count 6.8 T/CUMM (4-12)
[2018-06-04] MEDS ORDERED: FUROSEMIDE 40 MG/4 ML VIAL IV SCH (08:00)
[2018-06-04 08:14] LABS: Calcium 8.7 MG/DL (8.5-10.1); Osmolality,Calculated 281.7 MOS/KG (273-304)
[2018-06-04 08:44] LABS: Basophils # 0.1 10*3/uL (0.0-0.2); Basophils % 0.7 % (0.0-0.8); Eosinophils # 0.4 10*3/uL (0.0-0.87); Eosinophils % 4.9 % (0.00-10.9); Hematocrit 33.7 VOL% (35.7-47.0); Hemoglobin 10.7 GM/DL (12.0-16.0); Immature Granulocytes % 0.5 %; Immature Granulocytes Absolute 0.04 #; Mean Corpuscular HGB Conc 31.8 GM/DL (32-36); Mean Corpuscular Hemoglobin 28 PG (27-34); Mean Corpuscular Volume 87.5 FL (87-102); Mean Platelet Volume 10.7 FL (9.6-12.0); Monocytes # 0.9 10*3/uL (0.11-0.8); Monocytes % 12.4 % (1.7-12.7); Neutrophils # 5.1 10*3/uL (1.4-7.4); Neutrophils % 68.5 % (38.7-73.9); Platelet Count 207 T/CUMM (130-400); Red Blood Count 3.85 MC/CUMM (3.8-5.5); Red Cell Distribution Width 14.4 % (9.3-17.3); White Blood Count 7.5 T/CUMM (4-12)
[2018-06-04] MEDS: INSULIN REGULAR 100 UNIT/ML SUBCUT SCH ×2 (08:49→12:18)
[2018-06-04] MEDS: ASPIRIN EC 81 MG TABLET PO SCH (08:49)
[2018-06-04] MEDS: PANTOPRAZOLE 40 MG TABLET PO SCH (08:50)
[2018-06-04] MEDS: ASCORBIC ACID 500 MG TABLET PO SCH (08:50)
[2018-06-04] MEDS: CLOPIDOGREL 75 MG TABLET PO SCH (08:50)
[2018-06-04] MEDS: CIPROFLOXACIN 500 MG TABLET PO SCH (08:50)
[2018-06-04] MEDS: CALCIUM (CARBONATE)/VITAMIN D 500 MG-200 UNIT TABLET PO SCH (08:50)
[2018-06-04] MEDS: VANCOMYCIN INJ 1,000 MG in SODIUM CHLORIDE 0.9% 250 ML IV SCH (08:52)
[2018-06-04] MEDS ORDERED: INSULIN GLARGINE 100 UNIT/ML SUBCUT SCH (09:00)
[2018-06-04] MEDS ORDERED: VANCOMYCIN INJ 1,000 MG in SODIUM CHLORIDE 0.9% 250 ML IV SCH (13:00)
[2018-06-04 15:43] VITALS: BP 161/79
== END 2018-06-04 16:25 | DRG 280 ==
LOC: EDUNIT# → EDBD → N.ED 15:50 → SUATTDRO 18:03 → N.EDINP 18:03 → N.CC 19:20 → N.TELEN 06-02 14:33
PROVIDERS: ADMIT Internal Medicine; ATTEND Family Medicine
PROC: CLCCHCL (ICD-10-PCS; 2018-06-03 14:15)

== ENCOUNTER 2019-04-21 11:16 | Inpatient (IN) ==
[2019-04-21] MEDS ORDERED: ONDANSETRON 4 MG/2 ML VIAL IV STA (11:37)
[2019-04-21] MEDS ORDERED: fentaNYL 100 MCG/2 ML VIAL IV PRN (11:38)
[2019-04-21 11:48] LABS: Basophils % 0.5 % (0.0-0.8); Eosinophils # 0.1 10*3/uL (0.0-0.87); Eosinophils % 2.3 % (0.00-10.9); Hematocrit 29.9 VOL% (35.7-47.0); Hemoglobin 9.4 GM/DL (12.0-16.0); Immature Granulocytes % 0.5 %; Immature Granulocytes Absolute 0.03 #; Lymphocytes % 15.7 % (21.3-54.2); Mean Corpuscular HGB Conc 31.4 GM/DL (32-36); Mean Corpuscular Volume 93.4 FL (87-102); Mean Platelet Volume 10.2 FL (9.6-12.0); Monocytes % 8.4 % (1.7-12.7); Neutrophils % 72.6 % (38.7-73.9); Platelet Count 223 T/CUMM (130-400); Red Cell Distribution Width 13.2 % (9.3-17.3); White Blood Count 6.2 T/CUMM (4-12)
[2019-04-21 12:01] LABS: PT Patient Result 10.7 SECS (9.6-12.2); Partial Thromboplastin Time 23.1 SECS (20.8-36.0)
[2019-04-21 12:02] LABS: Apearance,Urine CLEAR (Clear); Bilirubin,Urine Negative (Negative); Blood, Urine Negative (Negative); Glucose,Urine (UA) Negative (Negative); Hyaline Casts,Urine 20 /LPF (0-3); Ketones,Urine Negative (Negative); Nitrite,Urine Negative (Negative); Protein,Urine Negative; RBC,Urine <1 /HPF (0-4); Urine Color Yellow (Yellow); Urine Specific Gravity 1.009 (1.001-1.035); Urine Urobilinogen < 2.0 EU/DL (0.2-1.0); WBC,Urine <1 /HPF (0-6)
[2019-04-21 12:07] LABS: Barbiturates Screen,Urine Negative (Negative); Benzodiazepines Screen,Urine Negative (Negative); Cannabinoid Screen,Urine Negative (Negative); Opiate Screen,Urine Negative (Negative); Phencyclidine Screen,Urine Negative (Negative)
[2019-04-21 12:12] LABS: Alanine Aminotransferase 29 U/L (13-56); Alkaline Phosphatase 121 U/L (45-117); Aspartate Amino Transferase 34 U/L (0-37); Blood Urea Nitrogen 35 MG/DL (7-18); Calcium 8.4 MG/DL (8.5-10.1); Estimated Glom Filtration Rate 47 ML/MIN; Glucose 146 MG/DL (74-106); Osmolality,Calculated 283.8 MOS/KG (273-304); Total Protein 6.4 G/DL (6.4-8.3)
[2019-04-21] MEDS ORDERED: DEXTROSE 10% 25 GM/250 ML BAG IV PRN (12:24)
[2019-04-21] MEDS ORDERED: GLUCAGON 1 MG VIAL IM PRN (12:24)
[2019-04-21] MEDS ORDERED: ENOXAPARIN 40 MG/0.4 ML SYRINGE SUBCUT SCH (12:30)
[2019-04-21] MEDS ORDERED: SODIUM CHLORIDE 0.9% 500 ML IV STA (12:48)
[2019-04-21] MEDS ORDERED: KETOROLAC 30 MG/1 ML VIAL IV ONE (12:53)
[2019-04-21] MEDS: PANTOPRAZOLE 40 MG VIAL IV SCH (13:00)
[2019-04-21] MEDS ORDERED: NITROGLYCERIN SL 0.4 MG TABLET SL PRN (13:48)
[2019-04-21] MEDS: SODIUM CHLORIDE 0.9% 1,000 ML IV SCH ×3 (13:57→23:31)
[2019-04-21] MEDS: ONDANSETRON 4 MG/2 ML VIAL IV PRN ×3 (13:57→21:19)
[2019-04-21] MEDS: MORPHINE 4 MG/1 ML VIAL IV PRN ×3 (13:57→21:40)
[2019-04-21] MEDS ORDERED: INSULIN LISPRO 100 UNIT/ML SUBCUT SCH (14:00)
[2019-04-21] MEDS ORDERED: ETOMIDATE 20 MG/10 ML VIAL IV ONE (14:15)
[2019-04-21] MEDS ORDERED: ROCURONIUM 100 MG/10 ML VIAL IV ONE (14:16)
[2019-04-21] MEDS: INSULIN LISPRO 100 UNIT/ML SUBCUT SCH ×2 (19:00→20:55)
[2019-04-21] MEDS: VITAMIN E 400 UNIT CAPSULE PO SCH (20:56)
[2019-04-21] MEDS: carvediloL 6.25 MG TABLET PO SCH (20:56)
[2019-04-21] MEDS: LYSINE 500 MG TABLET PO SCH (20:56)
[2019-04-21] MEDS: POLYVINYL ALCOHOL 1.4% OPH SOLN 15 ML BOTTLE BOTH EYES SCH (20:56)
[2019-04-21] MEDS: ISOSORBIDE MONONITRATE 30 MG TABLET PO SCH (20:56)
[2019-04-21] MEDS: GABAPENTIN 100 MG CAPSULE PO SCH (20:56)
[2019-04-21] MEDS: SIMVASTATIN 40 MG TABLET PO SCH (20:57)
[2019-04-22] MEDS: INSULIN LISPRO 100 UNIT/ML SUBCUT SCH ×7 (00:10→23:51)
[2019-04-22] MEDS: MORPHINE 4 MG/1 ML VIAL IV PRN (04:33)
[2019-04-22] MEDS ORDERED: MORPHINE 4 MG/1 ML VIAL IV ONE ×2 (04:45)
[2019-04-22] MEDS ORDERED: METHOCARBAMOL INJ 500 MG in SODIUM CHLORIDE 0.9% 100 ML IV ONE (05:00)
[2019-04-22] MEDS ORDERED: SODIUM CHLORIDE 0.9% 250 ML IV ONE (06:14)
[2019-04-22 06:29] LABS: Basophils % 0.6 % (0.0-0.8); Eosinophils # 0.2 10*3/uL (0.0-0.87); Eosinophils % 2.7 % (0.00-10.9); Hematocrit 27.9 VOL% (35.7-47.0); Hemoglobin 8.4 GM/DL (12.0-16.0); Immature Granulocytes % 0.3 %; Immature Granulocytes Absolute 0.02 #; Lymphocytes # 0.6 10*3/uL (1.4-4.0); Lymphocytes % 8.8 % (21.3-54.2); Mean Corpuscular HGB Conc 30.1 GM/DL (32-36); Mean Corpuscular Volume 95.9 FL (87-102); Mean Platelet Volume 10.7 FL (9.6-12.0); Monocytes % 9.8 % (1.7-12.7); Neutrophils % 77.8 % (38.7-73.9); Platelet Count 230 T/CUMM (130-400); Red Blood Count 2.91 MC/CUMM (3.8-5.5); Red Cell Distribution Width 13.4 % (9.3-17.3); White Blood Count 7.1 T/CUMM (4-12)
[2019-04-22] MEDS ORDERED: GENTAMICIN INJ 80 MG in PREMIX 1 EACH IV ONE ×2 (06:30→07:30)
[2019-04-22] MEDS ORDERED: ceFAZolin 1,000 MG in SYRINGE 1 EACH IV ONE (06:30)
[2019-04-22 06:51] LABS: Calcium 7.8 MG/DL (8.5-10.1); Osmolality,Calculated 290.1 MOS/KG (273-304)
[2019-04-22] MEDS: SODIUM CHLORIDE 0.9% 1,000 ML IV SCH ×2 (07:00→08:50)
[2019-04-22] MEDS: carvediloL 6.25 MG TABLET PO SCH ×2 (08:51→21:04)
[2019-04-22] MEDS: GABAPENTIN 100 MG CAPSULE PO SCH ×2 (08:51→21:04)
[2019-04-22] MEDS: OMEGA 3 ACID ETHYL ESTERS 1 GM CAPSULE PO SCH (08:51)
[2019-04-22] MEDS: ASPIRIN EC 81 MG TABLET PO SCH (08:51)
[2019-04-22] MEDS: LOSARTAN 25 MG TABLET PO SCH (08:51)
[2019-04-22] MEDS: LYSINE 500 MG TABLET PO SCH ×2 (08:51→21:03)
[2019-04-22] MEDS: ASCORBIC ACID 500 MG TABLET PO SCH (08:52)
[2019-04-22] MEDS: MULTIVITAMIN (OCUVITE) TABLET PO SCH (08:52)
[2019-04-22] MEDS: CALCIUM (CARBONATE)/VITAMIN D 500 MG-200 UNIT TABLET PO SCH (08:52)
[2019-04-22] MEDS ORDERED: BACITRACIN OINT 0.9 GM PACK TOP ONE (11:33)
[2019-04-22] MEDS ORDERED: MORPHINE 4 MG/1 ML VIAL IV PRN ×2 (11:41)
[2019-04-22] MEDS ORDERED: PROPOFOL 200 MG/20 ML VIAL IV ONE (12:02)
[2019-04-22] MEDS ORDERED: LIDOCAINE 2% 5 ML VIAL ONE (12:02)
[2019-04-22] MEDS ORDERED: fentaNYL 100 MCG/2 ML VIAL ONE (12:03)
[2019-04-22] MEDS ORDERED: ETOMIDATE 40 MG/20 ML VIAL IV ONE (12:03)
[2019-04-22] MEDS ORDERED: HYDROmorphone 2 MG/1 ML VIAL IV PRN (12:03)
[2019-04-22] MEDS ORDERED: NEOSTIGMINE 10 MG/10 ML VIAL ONE (12:03)
[2019-04-22] MEDS ORDERED: ePHEDrine 50 MG/ML AMP ONE (12:03)
[2019-04-22] MEDS ORDERED: DEXAMETHASONE 4 MG/1 ML VIAL ONE (12:03)
[2019-04-22] MEDS ORDERED: ONDANSETRON 4 MG/2 ML VIAL ONE (12:03)
[2019-04-22] MEDS ORDERED: ONDANSETRON 4 MG/2 ML VIAL IV PRN (12:03)
[2019-04-22] MEDS ORDERED: PHENYLEPHRINE 1 MG/10 ML SYRINGE IV ONE (12:04)
[2019-04-22] MEDS ORDERED: ACETAMINOPHEN 1,000 MG/100 ML VIAL IV ONE (12:04)
[2019-04-22] MEDS ORDERED: SEVOFLURANE 1 UNIT/15 MINUTE INH ONE (12:04)
[2019-04-22] MEDS ORDERED: GLYCOPYRROLATE 0.4 MG/2 ML VIAL ONE (12:04)
[2019-04-22] MEDS ORDERED: ROCURONIUM 100 MG/10 ML VIAL IV ONE (12:05)
[2019-04-22] MEDS ORDERED: LACTATED RINGERS 1,000 ML IV SCH (12:30)
[2019-04-22] MEDS: LACTATED RINGERS 1,000 ML IV SCH ×3 (13:11→22:27)
[2019-04-22] MEDS: PANTOPRAZOLE 40 MG VIAL IV SCH (13:39)
[2019-04-22] MEDS ORDERED: ceFAZolin 1,000 MG in SYRINGE 1 EACH IV SCH (15:41)
[2019-04-22] MEDS ORDERED: DEXTROSE 50% 25 GM/50 ML VIAL IV PRN (16:54)
[2019-04-22] MEDS ORDERED: GLUCAGON 1 MG VIAL IM PRN (16:54)
[2019-04-22] MEDS: ceFAZolin 1,000 MG in SYRINGE 1 EACH IV SCH (17:37)
[2019-04-22] MEDS: VITAMIN E 400 UNIT CAPSULE PO SCH (21:03)
[2019-04-22] MEDS: SIMVASTATIN 40 MG TABLET PO SCH (21:04)
[2019-04-22] MEDS: POLYVINYL ALCOHOL 1.4% OPH SOLN 15 ML BOTTLE BOTH EYES SCH (21:04)
[2019-04-22] MEDS: ISOSORBIDE MONONITRATE 30 MG TABLET PO SCH (21:04)
[2019-04-23] MEDS: ceFAZolin 1,000 MG in SYRINGE 1 EACH IV SCH (02:12)
[2019-04-23] MEDS ORDERED: SODIUM CHLORIDE 0.9% 500 ML IV ONE (03:55)
[2019-04-23] MEDS: INSULIN LISPRO 100 UNIT/ML SUBCUT SCH ×5 (04:30→20:42)
[2019-04-23 04:43] LABS: Basophils % 0.3 % (0.0-0.8); Eosinophils # 0.3 10*3/uL (0.0-0.87); Eosinophils % 4.4 % (0.00-10.9); Hematocrit 24.3 VOL% (35.7-47.0); Hemoglobin 7.3 GM/DL (12.0-16.0); Immature Granulocytes % 0.2 %; Immature Granulocytes Absolute 0.01 #; Lymphocytes # 0.8 10*3/uL (1.4-4.0); Lymphocytes % 12.1 % (21.3-54.2); Mean Corpuscular Volume 94.9 FL (87-102); Mean Platelet Volume 10.5 FL (9.6-12.0); Monocytes % 10.4 % (1.7-12.7); Neutrophils % 72.6 % (38.7-73.9); Platelet Count 199 T/CUMM (130-400); Red Blood Count 2.56 MC/CUMM (3.8-5.5); Red Cell Distribution Width 13.7 % (9.3-17.3); White Blood Count 6.6 T/CUMM (4-12)
[2019-04-23 05:17] LABS: Calcium 7.6 MG/DL (8.5-10.1)
[2019-04-23] MEDS: LACTATED RINGERS 1,000 ML IV SCH ×4 (09:12→23:28)
[2019-04-23] MEDS: ASPIRIN EC 81 MG TABLET PO SCH (09:37)
[2019-04-23] MEDS: LYSINE 500 MG TABLET PO SCH ×2 (09:38→20:42)
[2019-04-23] MEDS: MULTIVITAMIN (OCUVITE) TABLET PO SCH (09:38)
[2019-04-23] MEDS: CLOPIDOGREL 75 MG TABLET PO SCH (09:38)
[2019-04-23] MEDS: OMEGA 3 ACID ETHYL ESTERS 1 GM CAPSULE PO SCH (09:38)
[2019-04-23] MEDS: GABAPENTIN 100 MG CAPSULE PO SCH ×2 (09:39→20:43)
[2019-04-23] MEDS: ASCORBIC ACID 500 MG TABLET PO SCH (09:39)
[2019-04-23] MEDS: CALCIUM (CARBONATE)/VITAMIN D 500 MG-200 UNIT TABLET PO SCH (09:39)
[2019-04-23] MEDS ORDERED: LACTATED RINGERS 250 ML IV ONE (11:56)
[2019-04-23] MEDS: carvediloL 6.25 MG TABLET PO SCH ×2 (12:28→20:47)
[2019-04-23] MEDS: PANTOPRAZOLE 40 MG VIAL IV SCH (12:43)
[2019-04-23] MEDS ORDERED: traMADol 50 MG TABLET PO PRN (13:04)
[2019-04-23 15:54] LABS: Hemoglobin 7.5 GM/DL (12.0-16.0)
[2019-04-23] MEDS: KETOROLAC 30 MG/1 ML VIAL IV PRN (16:52)
[2019-04-23] MEDS ORDERED: SODIUM CHLORIDE 0.9% 250 ML IV ONE (18:33)
[2019-04-23] MEDS: ISOSORBIDE MONONITRATE 30 MG TABLET PO SCH (20:42)
[2019-04-23] MEDS: VITAMIN E 400 UNIT CAPSULE PO SCH (20:42)
[2019-04-23] MEDS: POLYVINYL ALCOHOL 1.4% OPH SOLN 15 ML BOTTLE BOTH EYES SCH (20:44)
[2019-04-23] MEDS: SIMVASTATIN 40 MG TABLET PO SCH (20:47)
[2019-04-23] MEDS ORDERED: ZIPRASIDONE 20 MG/1 ML VIAL IM ONE (22:34)
[2019-04-24] MEDS: INSULIN LISPRO 100 UNIT/ML SUBCUT SCH ×6 (00:32→20:11)
[2019-04-24] MEDS ORDERED: SODIUM CHLORIDE 0.9% 500 ML IV PRN (02:00)
[2019-04-24] MEDS: LACTATED RINGERS 1,000 ML IV SCH ×3 (04:00→17:32)
[2019-04-24] MEDS: KETOROLAC 30 MG/1 ML VIAL IV PRN (04:49)
[2019-04-24 06:26] LABS: Basophils % 0.5 % (0.0-0.8); Eosinophils # 0.2 10*3/uL (0.0-0.87); Eosinophils % 3.3 % (0.00-10.9); Hematocrit 28.3 VOL% (35.7-47.0); Hemoglobin 8.4 GM/DL (12.0-16.0); Immature Granulocytes % 0.3 %; Immature Granulocytes Absolute 0.02 #; Lymphocytes # 0.6 10*3/uL (1.4-4.0); Lymphocytes % 9.7 % (21.3-54.2); Mean Corpuscular HGB Conc 29.7 GM/DL (32-36); Mean Corpuscular Volume 96.9 FL (87-102); Mean Platelet Volume 10.4 FL (9.6-12.0); Monocytes % 10.7 % (1.7-12.7); Neutrophils % 75.5 % (38.7-73.9); Platelet Count 215 T/CUMM (130-400); Red Blood Count 2.92 MC/CUMM (3.8-5.5); Red Cell Distribution Width 13.5 % (9.3-17.3); White Blood Count 6.4 T/CUMM (4-12)
[2019-04-24] MEDS: carvediloL 6.25 MG TABLET PO SCH ×2 (09:13→20:55)
[2019-04-24] MEDS: OMEGA 3 ACID ETHYL ESTERS 1 GM CAPSULE PO SCH (09:13)
[2019-04-24] MEDS: ASPIRIN EC 81 MG TABLET PO SCH (09:13)
[2019-04-24] MEDS: LYSINE 500 MG TABLET PO SCH ×2 (09:13→21:52)
[2019-04-24] MEDS: CLOPIDOGREL 75 MG TABLET PO SCH (09:14)
[2019-04-24] MEDS: GABAPENTIN 100 MG CAPSULE PO SCH ×2 (09:14→21:50)
[2019-04-24] MEDS: CALCIUM (CARBONATE)/VITAMIN D 500 MG-200 UNIT TABLET PO SCH (09:14)
[2019-04-24] MEDS: MULTIVITAMIN (OCUVITE) TABLET PO SCH (09:14)
[2019-04-24] MEDS: ASCORBIC ACID 500 MG TABLET PO SCH (09:26)
[2019-04-24 10:25] LABS: Basophils % 0.4 % (0.0-0.8); Eosinophils # 0.2 10*3/uL (0.0-0.87); Eosinophils % 2.3 % (0.00-10.9); Hematocrit 26.4 VOL% (35.7-47.0); Immature Granulocytes % 0.8 %; Immature Granulocytes Absolute 0.06 #; Lymphocytes # 0.9 10*3/uL (1.4-4.0); Lymphocytes % 10.9 % (21.3-54.2); Mean Corpuscular HGB Conc 30.3 GM/DL (32-36); Mean Platelet Volume 10.1 FL (9.6-12.0); Monocytes % 9.5 % (1.7-12.7); Neutrophils % 76.1 % (38.7-73.9); Platelet Count 213 T/CUMM (130-400); Red Blood Count 2.75 MC/CUMM (3.8-5.5); Red Cell Distribution Width 13.7 % (9.3-17.3)
[2019-04-24] MEDS ORDERED: SODIUM CHLORIDE 0.9% 1,000 ML IV SCH ×3 (10:30→18:00)
[2019-04-24 10:40] LABS: PT Patient Result 11.2 SECS (9.6-12.2); Partial Thromboplastin Time 24.5 SECS (20.8-36.0)
[2019-04-24 10:44] LABS: Albumin 2.5 G/DL (3.4-5.0); Bilirubin,Total 1.1 MG/DL (0.2-1.0); Osmolality,Calculated 281.2 MOS/KG (273-304); Total Protein 5.7 G/DL (6.4-8.3)
[2019-04-24 10:47] LABS: CKMB % 1.4 %; Calcium 7.8 MG/DL (8.5-10.1); Osmolality,Calculated 280.4 MOS/KG (273-304)
[2019-04-24 10:50] LABS: Troponin I 0.072 NG/ML (0.00-0.045)
[2019-04-24] MEDS: PANTOPRAZOLE 40 MG VIAL IV SCH (12:41)
[2019-04-24] MEDS: MAGNESIUM HYDROXIDE SUSP 30 ML UDCUP PO PRN (21:51)
[2019-04-24] MEDS: VITAMIN E 400 UNIT CAPSULE PO SCH (21:51)
[2019-04-24] MEDS: SIMVASTATIN 40 MG TABLET PO SCH (21:51)
[2019-04-24] MEDS: ISOSORBIDE MONONITRATE 30 MG TABLET PO SCH (21:51)
[2019-04-24] MEDS: POLYVINYL ALCOHOL 1.4% OPH SOLN 15 ML BOTTLE BOTH EYES SCH (21:52)
[2019-04-25] MEDS: INSULIN LISPRO 100 UNIT/ML SUBCUT SCH ×6 (00:32→20:53)
[2019-04-25 05:50] LABS: Basophils % 0.2 % (0.0-0.8); Eosinophils # 0.2 10*3/uL (0.0-0.87); Eosinophils % 2.3 % (0.00-10.9); Hematocrit 29.7 VOL% (35.7-47.0); Hemoglobin 9.1 GM/DL (12.0-16.0); Immature Granulocytes % 0.4 %; Immature Granulocytes Absolute 0.03 #; Lymphocytes % 12.5 % (21.3-54.2); Mean Corpuscular HGB Conc 30.6 GM/DL (32-36); Mean Corpuscular Volume 95.5 FL (87-102); Mean Platelet Volume 10.5 FL (9.6-12.0); Neutrophils % 74.6 % (38.7-73.9); Platelet Count 221 T/CUMM (130-400); Red Blood Count 3.11 MC/CUMM (3.8-5.5); Red Cell Distribution Width 13.7 % (9.3-17.3); White Blood Count 8.3 T/CUMM (4-12)
[2019-04-25 08:35] LABS: ABG Base Excess -0.6 MMOL/L (-2.5-2.5); ABG HCO3 24.5 MMOL/L (20-26); ABG Oxygen Saturation 93.8 % (95-100); ABG PCO2 42.1 MM HG (35-48); ABG PH 7.383 (7.35-7.45); ABG PO2 73.9 MM HG (80-95); ABG TCO2 25.8 MMOL/L (23-27); Pt O2 Delivery Device Venturi Mask
[2019-04-25] MEDS: SODIUM CHLORIDE 0.9% 1,000 ML IV SCH ×2 (11:10→23:21)
[2019-04-25] MEDS: carvediloL 6.25 MG TABLET PO SCH ×2 (11:11→21:22)
[2019-04-25] MEDS: ASPIRIN EC 81 MG TABLET PO SCH (11:11)
[2019-04-25] MEDS: OMEGA 3 ACID ETHYL ESTERS 1 GM CAPSULE PO SCH (11:12)
[2019-04-25] MEDS: CLOPIDOGREL 75 MG TABLET PO SCH (11:12)
[2019-04-25] MEDS: CALCIUM (CARBONATE)/VITAMIN D 500 MG-200 UNIT TABLET PO SCH (11:12)
[2019-04-25] MEDS: PANTOPRAZOLE 40 MG TABLET PO SCH (11:12)
[2019-04-25] MEDS: LOSARTAN 25 MG TABLET PO SCH (11:12)
[2019-04-25] MEDS: MULTIVITAMIN (OCUVITE) TABLET PO SCH (11:12)
[2019-04-25] MEDS: LYSINE 500 MG TABLET PO SCH ×2 (11:12→21:22)
[2019-04-25] MEDS: ASCORBIC ACID 500 MG TABLET PO SCH (11:13)
[2019-04-25] MEDS: GABAPENTIN 100 MG CAPSULE PO SCH (11:16)
[2019-04-25] MEDS: POLYVINYL ALCOHOL 1.4% OPH SOLN 15 ML BOTTLE BOTH EYES SCH (20:53)
[2019-04-25] MEDS: MAGNESIUM HYDROXIDE SUSP 30 ML UDCUP PO PRN (21:22)
[2019-04-25] MEDS: VITAMIN E 400 UNIT CAPSULE PO SCH (21:22)
[2019-04-25] MEDS: SIMVASTATIN 40 MG TABLET PO SCH (21:22)
[2019-04-25] MEDS: ISOSORBIDE MONONITRATE 30 MG TABLET PO SCH (21:22)
[2019-04-26] MEDS: INSULIN LISPRO 100 UNIT/ML SUBCUT SCH ×6 (03:34→21:13)
[2019-04-26] MEDS: SODIUM CHLORIDE 0.9% 1,000 ML IV SCH ×2 (03:35→14:27)
[2019-04-26 05:54] LABS: Basophils % 0.1 % (0.0-0.8); Eosinophils # 0.1 10*3/uL (0.0-0.87); Eosinophils % 0.6 % (0.00-10.9); Hematocrit 25.3 VOL% (35.7-47.0); Hemoglobin 7.9 GM/DL (12.0-16.0); Immature Granulocytes % 0.7 %; Immature Granulocytes Absolute 0.09 #; Lymphocytes # 0.5 10*3/uL (1.4-4.0); Lymphocytes % 4.4 % (21.3-54.2); Mean Corpuscular HGB Conc 31.2 GM/DL (32-36); Mean Corpuscular Volume 93.4 FL (87-102); Mean Platelet Volume 10.2 FL (9.6-12.0); Monocytes % 7.5 % (1.7-12.7); Neutrophils % 86.7 % (38.7-73.9); Platelet Count 215 T/CUMM (130-400); Red Blood Count 2.71 MC/CUMM (3.8-5.5); Red Cell Distribution Width 13.9 % (9.3-17.3); White Blood Count 12.1 T/CUMM (4-12)
[2019-04-26 06:17] LABS: Band Neutrophils 2 % (0-10); Hypochromasia 1+; Lymphocytes 5 % (20-55); Segmented Neutrophils 87 % (50-85); Total Cells Counted 100
[2019-04-26 06:18] LABS: Acanthocytes Few; Microcytosis 1+; Platelet Estimate Normal
[2019-04-26 06:33] LABS: Albumin 2.3 G/DL (3.4-5.0); Bilirubin,Total 1.5 MG/DL (0.2-1.0); Calcium 7.6 MG/DL (8.5-10.1); Osmolality,Calculated 287.7 MOS/KG (273-304); Total Protein 5.5 G/DL (6.4-8.3)
[2019-04-26] MEDS: ACETAMINOPHEN 325 MG TABLET PO PRN ×3 (07:37→18:00)
[2019-04-26] MEDS: ASPIRIN EC 81 MG TABLET PO SCH (09:42)
[2019-04-26] MEDS: CLOPIDOGREL 75 MG TABLET PO SCH (09:42)
[2019-04-26] MEDS: LYSINE 500 MG TABLET PO SCH ×2 (09:42→21:13)
[2019-04-26] MEDS: CALCIUM (CARBONATE)/VITAMIN D 500 MG-200 UNIT TABLET PO SCH (09:42)
[2019-04-26] MEDS: MULTIVITAMIN (OCUVITE) TABLET PO SCH (09:42)
[2019-04-26] MEDS: ASCORBIC ACID 500 MG TABLET PO SCH (09:42)
[2019-04-26] MEDS: carvediloL 6.25 MG TABLET PO SCH ×2 (09:42→21:09)
[2019-04-26] MEDS: OMEGA 3 ACID ETHYL ESTERS 1 GM CAPSULE PO SCH (09:42)
[2019-04-26] MEDS: PANTOPRAZOLE 40 MG TABLET PO SCH (09:43)
[2019-04-26] MEDS: POLYVINYL ALCOHOL 1.4% OPH SOLN 15 ML BOTTLE BOTH EYES SCH (21:12)
[2019-04-26] MEDS: ISOSORBIDE MONONITRATE 30 MG TABLET PO SCH (21:12)
[2019-04-26] MEDS: DOCUSATE SODIUM 100 MG CAPSULE PO PRN (21:12)
[2019-04-26] MEDS: VITAMIN E 400 UNIT CAPSULE PO SCH (21:12)
[2019-04-26] MEDS: SIMVASTATIN 40 MG TABLET PO SCH (21:13)
[2019-04-27] MEDS: ACETAMINOPHEN 325 MG TABLET PO PRN ×5 (00:55→16:37)
[2019-04-27] MEDS: SODIUM CHLORIDE 0.9% 1,000 ML IV SCH ×2 (03:03→16:31)
[2019-04-27 04:55] LABS: Basophils % 0.3 % (0.0-0.8); Eosinophils # 0.4 10*3/uL (0.0-0.87); Eosinophils % 3.6 % (0.00-10.9); Hematocrit 26.1 VOL% (35.7-47.0); Hemoglobin 8.1 GM/DL (12.0-16.0); Immature Granulocytes % 0.5 %; Immature Granulocytes Absolute 0.05 #; Lymphocytes # 0.6 10*3/uL (1.4-4.0); Lymphocytes % 5.8 % (21.3-54.2); Mean Corpuscular Volume 94.2 FL (87-102); Mean Platelet Volume 10.7 FL (9.6-12.0); Monocytes % 7.8 % (1.7-12.7); Platelet Count 259 T/CUMM (130-400); Red Blood Count 2.77 MC/CUMM (3.8-5.5); Red Cell Distribution Width 13.9 % (9.3-17.3); White Blood Count 10.5 T/CUMM (4-12)
[2019-04-27 05:20] LABS: Calcium 7.5 MG/DL (8.5-10.1); Osmolality,Calculated 288.7 MOS/KG (273-304)
[2019-04-27] MEDS: INSULIN LISPRO 100 UNIT/ML SUBCUT SCH ×4 (08:30→21:23)
[2019-04-27] MEDS: LYSINE 500 MG TABLET PO SCH ×2 (10:04→21:24)
[2019-04-27] MEDS: CLOPIDOGREL 75 MG TABLET PO SCH (10:04)
[2019-04-27] MEDS: carvediloL 6.25 MG TABLET PO SCH ×2 (10:04→21:25)
[2019-04-27] MEDS: CALCIUM (CARBONATE)/VITAMIN D 500 MG-200 UNIT TABLET PO SCH (10:04)
[2019-04-27] MEDS: ASCORBIC ACID 500 MG TABLET PO SCH (10:04)
[2019-04-27] MEDS: OMEGA 3 ACID ETHYL ESTERS 1 GM CAPSULE PO SCH (10:05)
[2019-04-27] MEDS: LOSARTAN 25 MG TABLET PO SCH (10:05)
[2019-04-27] MEDS: PANTOPRAZOLE 40 MG TABLET PO SCH (10:05)
[2019-04-27] MEDS: ASPIRIN EC 81 MG TABLET PO SCH (10:05)
[2019-04-27] MEDS: MULTIVITAMIN (OCUVITE) TABLET PO SCH (10:05)
[2019-04-27] MEDS: DOCUSATE SODIUM 100 MG CAPSULE PO PRN ×2 (10:05→21:25)
[2019-04-27] MEDS: ISOSORBIDE MONONITRATE 30 MG TABLET PO SCH (21:24)
[2019-04-27] MEDS: VITAMIN E 400 UNIT CAPSULE PO SCH (21:24)
[2019-04-27] MEDS: POLYVINYL ALCOHOL 1.4% OPH SOLN 15 ML BOTTLE BOTH EYES SCH (21:24)
[2019-04-27] MEDS: SIMVASTATIN 40 MG TABLET PO SCH (21:25)
[2019-04-27] MEDS: ALBUTEROL 2.5 MG/3 ML NEB RESP TX PRN (21:40)
[2019-04-28] MEDS: ACETAMINOPHEN 325 MG TABLET PO PRN (03:21)
[2019-04-28] MEDS: KETOROLAC 30 MG/1 ML VIAL IV PRN (04:15)
[2019-04-28] MEDS: SODIUM CHLORIDE 0.9% 1,000 ML IV SCH (04:49)
[2019-04-28 08:43] LABS: Basophils % 0.3 % (0.0-0.8); Eosinophils # 0.3 10*3/uL (0.0-0.87); Eosinophils % 2.7 % (0.00-10.9); Hematocrit 31.6 VOL% (35.7-47.0); Hemoglobin 9.9 GM/DL (12.0-16.0); Immature Granulocytes % 0.5 %; Immature Granulocytes Absolute 0.06 #; Lymphocytes # 0.8 10*3/uL (1.4-4.0); Lymphocytes % 6.6 % (21.3-54.2); Mean Corpuscular HGB Conc 31.3 GM/DL (32-36); Mean Corpuscular Volume 92.7 FL (87-102); Mean Platelet Volume 9.8 FL (9.6-12.0); Monocytes % 5.9 % (1.7-12.7); NRBC # 0.03 10*3/uL; Platelet Count 359 T/CUMM (130-400); Red Blood Count 3.41 MC/CUMM (3.8-5.5); Red Cell Distribution Width 14.6 % (9.3-17.3); White Blood Count 12.1 T/CUMM (4-12)
[2019-04-28 08:59] LABS: Calcium 7.8 MG/DL (8.5-10.1); Osmolality,Calculated 282.4 MOS/KG (273-304)
[2019-04-28] MEDS ORDERED: SODIUM PHOSPHATE ENEMA 133 ML BOTTLE RECTAL ONE (09:46)
[2019-04-28] MEDS: ASPIRIN EC 81 MG TABLET PO SCH (10:14)
[2019-04-28] MEDS: ASCORBIC ACID 500 MG TABLET PO SCH (10:14)
[2019-04-28] MEDS: LYSINE 500 MG TABLET PO SCH (10:14)
[2019-04-28] MEDS: MULTIVITAMIN (OCUVITE) TABLET PO SCH (10:14)
[2019-04-28] MEDS: PANTOPRAZOLE 40 MG TABLET PO SCH (10:15)
[2019-04-28] MEDS: CALCIUM (CARBONATE)/VITAMIN D 500 MG-200 UNIT TABLET PO SCH (10:15)
[2019-04-28] MEDS: carvediloL 6.25 MG TABLET PO SCH (10:15)
[2019-04-28] MEDS: OMEGA 3 ACID ETHYL ESTERS 1 GM CAPSULE PO SCH (10:15)
[2019-04-28] MEDS: INSULIN LISPRO 100 UNIT/ML SUBCUT SCH ×2 (10:15→12:45)
[2019-04-28] MEDS: CLOPIDOGREL 75 MG TABLET PO SCH (10:15)
[2019-04-28] MEDS: ALBUTEROL 2.5 MG/3 ML NEB RESP TX PRN (11:56)
[2019-04-28 11:58] VITALS: BP 110/55
== END 2019-04-28 13:00 | disposition swing bed (61) | DRG 481 ==
LOC: EDUNIT# → EDBD → N.ED 11:16 → SUATTDRO 12:20 → N.EDINP 12:20 → N.ICU 12:47 → N.3E 04-26 14:00
PROVIDERS: ADMIT Internal Medicine; ATTEND Family Medicine

== ENCOUNTER 2019-06-28 14:39 | Inpatient (IN) ==
[2019-06-28 16:12] LABS: Basophils % 0.5 % (0.0-0.8); Eosinophils # 0.2 10*3/uL (0.0-0.87); Eosinophils % 2.8 % (0.00-10.9); Hematocrit 34.6 VOL% (35.7-47.0); Hemoglobin 10.7 GM/DL (12.0-16.0); Immature Granulocytes % 0.3 %; Immature Granulocytes Absolute 0.02 #; Lymphocytes # 0.7 10*3/uL (1.4-4.0); Mean Corpuscular HGB Conc 30.9 GM/DL (32-36); Mean Corpuscular Volume 99.1 FL (87-102); Mean Platelet Volume 10.3 FL (9.6-12.0); Monocytes % 9.1 % (1.7-12.7); Neutrophils % 75.3 % (38.7-73.9); Platelet Count 206 T/CUMM (130-400); Red Blood Count 3.49 MC/CUMM (3.8-5.5); Red Cell Distribution Width 15.9 % (9.3-17.3); White Blood Count 5.7 T/CUMM (4-12)
[2019-06-28 16:34] LABS: Albumin 3.4 G/DL (3.4-5.0); Bilirubin,Total 0.8 MG/DL (0.2-1.0); Calcium 8.6 MG/DL (8.5-10.1); Osmolality,Calculated 300.1 MOS/KG (273-304); Total Protein 7.3 G/DL (6.4-8.3)
[2019-06-28 16:36] LABS: INR 0.9
[2019-06-28] MEDS ORDERED: FUROSEMIDE 100 MG/10 ML VIAL IV STA (16:46)
[2019-06-28] MEDS ORDERED: FUROSEMIDE 40 MG/4 ML VIAL ONE (18:33)
[2019-06-28] MEDS ORDERED: ONDANSETRON 4 MG/2 ML VIAL IV PRN (20:09)
[2019-06-28] MEDS ORDERED: ACETAMINOPHEN 325 MG TABLET PO PRN (20:09)
[2019-06-28] MEDS ORDERED: MAGNESIUM HYDROXIDE SUSP 30 ML UDCUP PO PRN (20:11)
[2019-06-28] MEDS ORDERED: NITROGLYCERIN SL 0.4 MG TABLET SL PRN (20:11)
[2019-06-28] MEDS ORDERED: GLUCAGON 1 MG VIAL IM PRN (20:17)
[2019-06-28] MEDS ORDERED: DEXTROSE 50% 25 GM/50 ML SYRINGE IV PRN (20:17)
[2019-06-28 21:01] LABS: Apearance,Urine CLEAR (Clear); Bilirubin,Urine Negative (Negative); Blood, Urine Negative (Negative); Glucose,Urine (UA) >=500 mg/dL (Negative); Hyaline Casts,Urine 3 /LPF (0-3); Ketones,Urine Negative (Negative); Mucus,Urine Occasional /LPF (Occasional); Nitrite,Urine Negative (Negative); Protein,Urine Negative; RBC,Urine 1 /HPF (0-4); Squamous Epithelial Cell,Urine Occasional /HPF (0-10); Urine Color Straw (Yellow); Urine Urobilinogen < 2.0 EU/DL (0.2-1.0); WBC,Urine <1 /HPF (0-6)
[2019-06-28] MEDS: LYSINE 500 MG TABLET PO SCH (22:27)
[2019-06-28] MEDS: VITAMIN E 400 UNIT CAPSULE PO SCH (22:27)
[2019-06-28] MEDS: GABAPENTIN 100 MG CAPSULE PO SCH (22:27)
[2019-06-28] MEDS: ISOSORBIDE MONONITRATE 30 MG TABLET PO SCH (22:28)
[2019-06-28] MEDS: CARBOXYMETHYLCELLULOSE 1% OPH SOLN BOTH EYES SCH (22:28)
[2019-06-28] MEDS: INSULIN REGULAR 100 UNIT/ML SUBCUT SCH (22:29)
[2019-06-28] MEDS: SIMVASTATIN 40 MG TABLET PO SCH (22:29)
[2019-06-28] MEDS: carvediloL 6.25 MG TABLET PO SCH (22:29)
[2019-06-28] MEDS: HEPARIN 5,000 UNIT/1 ML VIAL SUBCUT SCH (22:30)
[2019-06-28] MEDS: LATANOPROST 0.005% OPH SOLN 2.5 ML BOTTLE RIGHT EYE SCH (22:31)
[2019-06-28] MEDS: FERROUS SULFATE 325 MG TABLET PO SCH (22:33)
[2019-06-28 22:56] LABS: Troponin I 0.257 NG/ML (0.00-0.045)
[2019-06-29 04:02] LABS: Basophils % 0.5 % (0.0-0.8); Eosinophils # 0.2 10*3/uL (0.0-0.87); Eosinophils % 3.4 % (0.00-10.9); Hematocrit 29.6 VOL% (35.7-47.0); Hemoglobin 9.3 GM/DL (12.0-16.0); Immature Granulocytes % 0.3 %; Immature Granulocytes Absolute 0.02 #; Lymphocytes # 1.1 10*3/uL (1.4-4.0); Lymphocytes % 17.6 % (21.3-54.2); Mean Corpuscular HGB Conc 31.4 GM/DL (32-36); Mean Corpuscular Volume 98.3 FL (87-102); Mean Platelet Volume 10.6 FL (9.6-12.0); Monocytes % 9.7 % (1.7-12.7); Neutrophils % 68.5 % (38.7-73.9); Platelet Count 173 T/CUMM (130-400); Red Blood Count 3.01 MC/CUMM (3.8-5.5); Red Cell Distribution Width 15.9 % (9.3-17.3)
[2019-06-29 04:21] LABS: Troponin I 0.224 NG/ML (0.00-0.045)
[2019-06-29 04:40] LABS: Albumin 2.9 G/DL (3.4-5.0); Bilirubin,Total 0.8 MG/DL (0.2-1.0); Calcium 8.5 MG/DL (8.5-10.1); Osmolality,Calculated 297.5 MOS/KG (273-304); Risk Ratio 1.8; Total Protein 6.1 G/DL (6.4-8.3); VLDL CHOLESTEROL 12.6 MG/DL
[2019-06-29] MEDS ORDERED: KRILL OM DHA EPA PHOSPHO AST PO SCH (09:00)
[2019-06-29] MEDS: FUROSEMIDE 40 MG/4 ML VIAL IV SCH ×2 (09:24→17:09)
[2019-06-29] MEDS: HEPARIN 5,000 UNIT/1 ML VIAL SUBCUT SCH ×2 (09:24→21:17)
[2019-06-29] MEDS: MULTIVITAMIN (OCUVITE) TABLET PO SCH (09:25)
[2019-06-29] MEDS: CALCIUM (CARBONATE)/VITAMIN D 500 MG-200 UNIT TABLET PO SCH (09:25)
[2019-06-29] MEDS: GABAPENTIN 100 MG CAPSULE PO SCH ×2 (09:25→21:11)
[2019-06-29] MEDS: LYSINE 500 MG TABLET PO SCH ×2 (09:25→21:10)
[2019-06-29] MEDS: metOLazone 5 MG TABLET PO PRN (09:25)
[2019-06-29] MEDS: FERROUS SULFATE 325 MG TABLET PO SCH ×2 (09:25→21:10)
[2019-06-29] MEDS: carvediloL 6.25 MG TABLET PO SCH ×2 (09:25→17:10)
[2019-06-29] MEDS: CLOPIDOGREL 75 MG TABLET PO SCH (09:25)
[2019-06-29] MEDS: ASPIRIN EC 81 MG TABLET PO SCH (09:25)
[2019-06-29] MEDS: PANTOPRAZOLE 40 MG TABLET PO SCH (09:26)
[2019-06-29] MEDS: INSULIN REGULAR 100 UNIT/ML SUBCUT SCH ×4 (09:26→21:11)
[2019-06-29] MEDS: ASCORBIC ACID 500 MG TABLET PO SCH (09:42)
[2019-06-29] MEDS: SILVER SULFADIAZINE 1% CREAM 25 GM TUBE TOP SCH (09:42)
[2019-06-29] MEDS: SKIN HEALING OINT (AQUAPHOR) 50 GM TUBE TOP SCH (18:33)
[2019-06-29] MEDS: SIMVASTATIN 40 MG TABLET PO SCH (21:10)
[2019-06-29] MEDS: VITAMIN E 400 UNIT CAPSULE PO SCH (21:11)
[2019-06-29] MEDS: CARBOXYMETHYLCELLULOSE 1% OPH SOLN BOTH EYES SCH (21:11)
[2019-06-29] MEDS: ISOSORBIDE MONONITRATE 30 MG TABLET PO SCH (21:11)
[2019-06-29] MEDS: LATANOPROST 0.005% OPH SOLN 2.5 ML BOTTLE RIGHT EYE SCH (21:53)
[2019-06-30 04:54] LABS: Basophils % 0.5 % (0.0-0.8); Eosinophils # 0.2 10*3/uL (0.0-0.87); Eosinophils % 2.7 % (0.00-10.9); Hematocrit 30.5 VOL% (35.7-47.0); Hemoglobin 9.4 GM/DL (12.0-16.0); Immature Granulocytes % 0.4 %; Immature Granulocytes Absolute 0.02 #; Lymphocytes # 0.9 10*3/uL (1.4-4.0); Lymphocytes % 16.3 % (21.3-54.2); Mean Corpuscular HGB Conc 30.8 GM/DL (32-36); Mean Corpuscular Volume 98.4 FL (87-102); Mean Platelet Volume 10.6 FL (9.6-12.0); Monocytes % 10.6 % (1.7-12.7); Neutrophils % 69.5 % (38.7-73.9); Platelet Count 179 T/CUMM (130-400); Red Cell Distribution Width 15.9 % (9.3-17.3); White Blood Count 5.6 T/CUMM (4-12)
[2019-06-30 05:50] LABS: Calcium 8.7 MG/DL (8.5-10.1); Osmolality,Calculated 296.7 MOS/KG (273-304)
[2019-06-30] MEDS: INSULIN REGULAR 100 UNIT/ML SUBCUT SCH ×4 (08:45→20:29)
[2019-06-30] MEDS: LYSINE 500 MG TABLET PO SCH ×2 (08:46→20:30)
[2019-06-30] MEDS: FUROSEMIDE 40 MG/4 ML VIAL IV SCH ×2 (08:46→17:07)
[2019-06-30] MEDS: metOLazone 5 MG TABLET PO PRN (08:46)
[2019-06-30] MEDS: GABAPENTIN 100 MG CAPSULE PO SCH ×2 (08:47→20:31)
[2019-06-30] MEDS: CLOPIDOGREL 75 MG TABLET PO SCH (08:47)
[2019-06-30] MEDS: MULTIVITAMIN (OCUVITE) TABLET PO SCH (08:47)
[2019-06-30] MEDS: PANTOPRAZOLE 40 MG TABLET PO SCH (08:47)
[2019-06-30] MEDS: ASPIRIN EC 81 MG TABLET PO SCH (08:47)
[2019-06-30] MEDS: CALCIUM (CARBONATE)/VITAMIN D 500 MG-200 UNIT TABLET PO SCH (08:47)
[2019-06-30] MEDS: ASCORBIC ACID 500 MG TABLET PO SCH (08:48)
[2019-06-30] MEDS: SKIN HEALING OINT (AQUAPHOR) 50 GM TUBE TOP SCH (08:48)
[2019-06-30] MEDS: carvediloL 6.25 MG TABLET PO SCH ×2 (08:48→17:25)
[2019-06-30] MEDS: FERROUS SULFATE 325 MG TABLET PO SCH ×2 (08:48→20:31)
[2019-06-30] MEDS: SILVER SULFADIAZINE 1% CREAM 25 GM TUBE TOP SCH (08:52)
[2019-06-30] MEDS: HEPARIN 5,000 UNIT/1 ML VIAL SUBCUT SCH ×2 (09:02→20:30)
[2019-06-30] MEDS: ISOSORBIDE MONONITRATE 30 MG TABLET PO SCH (20:30)
[2019-06-30] MEDS: VITAMIN E 400 UNIT CAPSULE PO SCH (20:30)
[2019-06-30] MEDS: SIMVASTATIN 40 MG TABLET PO SCH (20:30)
[2019-06-30] MEDS: LATANOPROST 0.005% OPH SOLN 2.5 ML BOTTLE RIGHT EYE SCH (20:31)
[2019-06-30] MEDS: CARBOXYMETHYLCELLULOSE 1% OPH SOLN BOTH EYES SCH (20:34)
[2019-07-01 05:12] LABS: Basophils % 0.2 % (0.0-0.8); Eosinophils # 0.2 10*3/uL (0.0-0.87); Eosinophils % 3.5 % (0.00-10.9); Hematocrit 30.4 VOL% (35.7-47.0); Hemoglobin 9.7 GM/DL (12.0-16.0); Immature Granulocytes % 0.2 %; Immature Granulocytes Absolute 0.01 #; Lymphocytes # 1.1 10*3/uL (1.4-4.0); Lymphocytes % 20.2 % (21.3-54.2); Mean Corpuscular HGB Conc 31.9 GM/DL (32-36); Mean Corpuscular Volume 97.1 FL (87-102); Mean Platelet Volume 10.2 FL (9.6-12.0); Monocytes % 9.1 % (1.7-12.7); Neutrophils % 66.8 % (38.7-73.9); Platelet Count 178 T/CUMM (130-400); Red Blood Count 3.13 MC/CUMM (3.8-5.5); Red Cell Distribution Width 15.6 % (9.3-17.3); White Blood Count 5.5 T/CUMM (4-12)
[2019-07-01 05:40] LABS: Calcium 8.3 MG/DL (8.5-10.1); Osmolality,Calculated 289.1 MOS/KG (273-304)
[2019-07-01] MEDS: FUROSEMIDE 40 MG/4 ML VIAL IV SCH (09:33)
[2019-07-01] MEDS: carvediloL 6.25 MG TABLET PO SCH (09:33)
[2019-07-01] MEDS: SKIN HEALING OINT (AQUAPHOR) 50 GM TUBE TOP SCH (09:34)
[2019-07-01] MEDS: ASCORBIC ACID 500 MG TABLET PO SCH (09:34)
[2019-07-01] MEDS: LYSINE 500 MG TABLET PO SCH (09:35)
[2019-07-01] MEDS: FERROUS SULFATE 325 MG TABLET PO SCH (09:35)
[2019-07-01] MEDS: PANTOPRAZOLE 40 MG TABLET PO SCH (09:35)
[2019-07-01] MEDS: GABAPENTIN 100 MG CAPSULE PO SCH (09:35)
[2019-07-01] MEDS: CLOPIDOGREL 75 MG TABLET PO SCH (09:35)
[2019-07-01] MEDS: MULTIVITAMIN (OCUVITE) TABLET PO SCH (09:35)
[2019-07-01] MEDS: ASPIRIN EC 81 MG TABLET PO SCH (09:35)
[2019-07-01] MEDS: CALCIUM (CARBONATE)/VITAMIN D 500 MG-200 UNIT TABLET PO SCH (09:35)
[2019-07-01] MEDS: SILVER SULFADIAZINE 1% CREAM 25 GM TUBE TOP SCH (09:36)
[2019-07-01] MEDS: INSULIN REGULAR 100 UNIT/ML SUBCUT SCH (09:37)
[2019-07-01] MEDS: HEPARIN 5,000 UNIT/1 ML VIAL SUBCUT SCH (09:37)
[2019-07-01 12:22] VITALS: BP 112/55
== END 2019-07-01 15:09 | disposition swing bed (61) | DRG 292 ==
LOC: N.ED 14:39 → N.EDINP 20:14 → SUATTDRO 20:14 → N.EDINP 20:44 → N.TELES 21:03
PROVIDERS: ADMIT Nurse Practitioner Family; ATTEND Family Medicine

== ENCOUNTER 2020-03-19 10:10 | Inpatient (IN) ==
[2020-03-19] MEDS ORDERED: ONDANSETRON 4 MG/2 ML VIAL IV STA (10:38)
[2020-03-19] MEDS ORDERED: SODIUM CHLORIDE 0.9% 1,000 ML IV STA (10:40)
[2020-03-19 11:05] LABS: Basophils % 0.5 % (0.0-0.8); Eosinophils % 0.2 % (0.00-10.9); Hemoglobin 13.4 GM/DL (12.0-16.0); Immature Granulocytes % 0.5 %; Immature Granulocytes Absolute 0.03 #; Lymphocytes # 0.3 10*3/uL (1.4-4.0); Lymphocytes % 5.2 % (21.3-54.2); Mean Corpuscular HGB Conc 32.7 GM/DL (32-36); Mean Platelet Volume 11.1 FL (9.6-12.0); Monocytes % 3.5 % (1.7-12.7); Neutrophils % 90.1 % (38.7-73.9); Platelet Count 193 T/CUMM (130-400); Red Blood Count 4.27 MC/CUMM (3.8-5.5); Red Cell Distribution Width 14.3 % (9.3-17.3)
[2020-03-19] MEDS ORDERED: INSULIN REGULAR 100 UNIT/ML IV STA (11:29)
[2020-03-19 11:41] LABS: Albumin 4.3 G/DL (3.4-5.0); Bilirubin,Total 1.8 MG/DL (0.2-1.0); Calcium 9.8 MG/DL (8.5-10.1); Osmolality,Calculated 296.9 MOS/KG (273-304); Total Protein 8.3 G/DL (6.4-8.3)
[2020-03-19] MEDS ORDERED: SODIUM CHLORIDE 0.9% 1,000 ML IV ONE (11:46)
[2020-03-19] MEDS ORDERED: MAGNESIUM SULF RIDER 4 GM in PREMIX 1 EACH IV PRN (11:46)
[2020-03-19] MEDS ORDERED: INSULIN REGULAR 100 UNIT/ML IV ONE (11:46)
[2020-03-19] MEDS ORDERED: SODIUM CHLORIDE 0.9% IV PRN (11:46)
[2020-03-19] MEDS ORDERED: SODIUM PHOSPHATE IV PRN (11:46)
[2020-03-19] MEDS ORDERED: DEXTROSE 50% 25 GM/50 ML VIAL IV PRN (11:46)
[2020-03-19] MEDS ORDERED: SODIUM BICARB INJ 100 MEQ in STERILE WATER INJ 400 ML IV PRN (11:46)
[2020-03-19] MEDS ORDERED: MAGNESIUM SULF RIDER 2 GM in PREMIX 1 EACH IV PRN (11:46)
[2020-03-19] MEDS ORDERED: ACETAMINOPHEN 500 MG TABLET PO PRN (11:47)
[2020-03-19] MEDS ORDERED: ALBUTEROL 2.5 MG/3 ML NEB RESP TX PRN (11:48)
[2020-03-19] MEDS ORDERED: INSULIN REGULAR DRIP 100 ML IV SCH (12:00)
[2020-03-19 12:19] LABS: ABG HCO3 17.2 MMOL/L (20-26); ABG Oxygen Saturation 95.4 % (95-100); ABG PCO2 32.3 MM HG (35-48); ABG PH 7.311 (7.35-7.45); ABG PO2 85.7 MM HG (80-95); ABG TCO2 14.7 MMOL/L (23-27)
[2020-03-19] MEDS ORDERED: ENOXAPARIN 60 MG/0.6 ML SYRINGE SUBCUT STA (12:26)
[2020-03-19] MEDS ORDERED: ASPIRIN CHEW 81 MG TABLET PO STA (12:26)
[2020-03-19] MEDS ORDERED: ENOXAPARIN 60 MG/0.6 ML SYRINGE ONE (12:35)
[2020-03-19 13:03] LABS: Bilirubin,Urine Negative (Negative); Blood, Urine Negative (Negative); Glucose,Urine (UA) >=500 mg/dL (Negative); Hyaline Casts,Urine 49 /LPF (0-3); Ketones,Urine 5 mg/dL (Negative); Mucus,Urine Occasional /LPF (Occasional); Nitrite,Urine Negative (Negative); Protein,Urine Negative; Squamous Epithelial Cell,Urine Occasional /HPF (0-10); Urine Appearance CLEAR (Clear); Urine Color Yellow (Yellow); Urine Specific Gravity 1.013 (1.001-1.035); Urine Urobilinogen < 2.0 EU/DL (0.2-1.0)
[2020-03-19 13:32] LABS: Calcium 8.7 MG/DL (8.5-10.1); Osmolality,Calculated 296.4 MOS/KG (273-304)
[2020-03-19] MEDS: SODIUM CHLORIDE 0.9% 1,000 ML IV SCH ×2 (13:48→16:08)
[2020-03-19] MEDS: cefTRIAXone 1,000 MG in SYRINGE 1 EACH IV SCH (14:10)
[2020-03-19] MEDS: POTASSIUM CHLORIDE RIDER 10 MEQ in PREMIX 1 EACH IV PRN ×5 (14:13→20:01)
[2020-03-19] MEDS ORDERED: SODIUM CHLORIDE 0.9% 1,000 ML IV SCH (16:46)
[2020-03-19 17:16] LABS: Calcium 8.6 MG/DL (8.5-10.1); Osmolality,Calculated 293.1 MOS/KG (273-304)
[2020-03-19 18:25] LABS: Hematocrit 30.8 VOL% (35.7-47.0); Hemoglobin 10.4 GM/DL (12.0-16.0)
[2020-03-19 20:53] LABS: Calcium 7.9 MG/DL (8.5-10.1); Osmolality,Calculated 287.8 MOS/KG (273-304)
[2020-03-19] MEDS ORDERED: ROSUVASTATIN 20 MG TABLET PO SCH (21:00)
[2020-03-19] MEDS ORDERED: carvediloL 6.25 MG TABLET PO SCH (21:00)
[2020-03-19] MEDS ORDERED: SIMVASTATIN 40 MG TABLET PO SCH (21:00)
[2020-03-19] MEDS ORDERED: ISOSORBIDE MONONITRATE 30 MG TABLET PO SCH (21:00)
[2020-03-19] MEDS: VITAMIN E 400 UNIT CAPSULE PO SCH (21:38)
[2020-03-19] MEDS: LATANOPROST 0.005% OPH SOLN 2.5 ML BOTTLE RIGHT EYE SCH (21:39)
[2020-03-19] MEDS: SODIUM CHLOR 0.9% KCL 20 MEQ 20 MEQ/1,000 ML BAG IV SCH (22:52)
[2020-03-20 01:14] LABS: Calcium 7.6 MG/DL (8.5-10.1); Osmolality,Calculated 278.8 MOS/KG (273-304)
[2020-03-20] MEDS: SODIUM CHLOR 0.9% KCL 20 MEQ 20 MEQ/1,000 ML BAG IV SCH (02:53)
[2020-03-20 03:53] LABS: Basophils % 0.2 % (0.0-0.8); Eosinophils # 0.1 10*3/uL (0.0-0.87); Eosinophils % 0.6 % (0.00-10.9); Hematocrit 32.7 VOL% (35.7-47.0); Hemoglobin 11.3 GM/DL (12.0-16.0); Immature Granulocytes % 0.5 %; Immature Granulocytes Absolute 0.04 #; Lymphocytes # 0.8 10*3/uL (1.4-4.0); Lymphocytes % 9.3 % (21.3-54.2); Mean Corpuscular HGB Conc 34.6 GM/DL (32-36); Mean Corpuscular Volume 90.8 FL (87-102); Mean Platelet Volume 10.4 FL (9.6-12.0); Monocytes % 11.1 % (1.7-12.7); Neutrophils % 78.3 % (38.7-73.9); Platelet Count 169 T/CUMM (130-400); White Blood Count 8.8 T/CUMM (4-12)
[2020-03-20] MEDS: INSULIN REGULAR 100 UNIT/ML SUBCUT SCH ×6 (03:59→23:03)
[2020-03-20] MEDS: DEXTROSE 50% 25 GM/50 ML VIAL IV PRN ×2 (04:08→23:06)
[2020-03-20 04:11] LABS: Calcium 7.8 MG/DL (8.5-10.1); Osmolality,Calculated 276.5 MOS/KG (273-304)
[2020-03-20 04:18] LABS: CKMB % 6.8 %
[2020-03-20] MEDS ORDERED: SODIUM CHLORIDE 0.45% 1,000 ML IV SCH (04:46)
[2020-03-20 07:56] LABS: Calcium 8.2 MG/DL (8.5-10.1); Osmolality,Calculated 278.8 MOS/KG (273-304)
[2020-03-20] MEDS: SODIUM CHLORIDE 0.45% 1,000 ML IV SCH ×2 (09:22→21:48)
[2020-03-20] MEDS: ASCORBIC ACID 500 MG TABLET PO SCH (09:23)
[2020-03-20] MEDS: ASPIRIN EC 81 MG TABLET PO SCH (09:23)
[2020-03-20] MEDS: CALCIUM (CARBONATE) 600 MG TABLET PO SCH (09:23)
[2020-03-20] MEDS: MULTIVITAMIN (OCUVITE) TABLET PO SCH (09:23)
[2020-03-20] MEDS: CLOPIDOGREL 75 MG TABLET PO SCH (09:23)
[2020-03-20] MEDS: INSULIN GLARGINE 100 UNIT/ML SUBCUT SCH (09:24)
[2020-03-20] MEDS: cefTRIAXone 1,000 MG in SYRINGE 1 EACH IV SCH (12:30)
[2020-03-20] MEDS ORDERED: ENOXAPARIN 60 MG/0.6 ML SYRINGE SUBCUT SCH (13:00)
[2020-03-20] MEDS ORDERED: ENOXAPARIN 30 MG/0.3 ML SYRINGE SUBCUT SCH (13:30)
[2020-03-20] MEDS: VITAMIN E 400 UNIT CAPSULE PO SCH (21:48)
[2020-03-20] MEDS: LATANOPROST 0.005% OPH SOLN 2.5 ML BOTTLE RIGHT EYE SCH (21:48)
[2020-03-21] MEDS: ENOXAPARIN 60 MG/0.6 ML SYRINGE SUBCUT SCH ×2 (00:08→12:54)
[2020-03-21] MEDS: INSULIN REGULAR 100 UNIT/ML SUBCUT SCH ×5 (04:24→21:09)
[2020-03-21 05:27] LABS: Basophils % 0.2 % (0.0-0.8); Eosinophils % 0.5 % (0.00-10.9); Hematocrit 33.9 VOL% (35.7-47.0); Hemoglobin 11.6 GM/DL (12.0-16.0); Immature Granulocytes % 0.4 %; Immature Granulocytes Absolute 0.02 #; Lymphocytes # 0.7 10*3/uL (1.4-4.0); Lymphocytes % 12.8 % (21.3-54.2); Mean Corpuscular HGB Conc 34.2 GM/DL (32-36); Mean Corpuscular Volume 93.1 FL (87-102); Mean Platelet Volume 10.9 FL (9.6-12.0); Monocytes % 7.3 % (1.7-12.7); Neutrophils % 78.8 % (38.7-73.9); Platelet Count 145 T/CUMM (130-400); Red Blood Count 3.64 MC/CUMM (3.8-5.5); Red Cell Distribution Width 14.6 % (9.3-17.3); White Blood Count 5.6 T/CUMM (4-12)
[2020-03-21 05:46] LABS: Calcium 8.4 MG/DL (8.5-10.1); Osmolality,Calculated 281.4 MOS/KG (273-304)
[2020-03-21 06:08] LABS: Bilirubin,Direct 0.3 MG/DL (0.0-0.20); Bilirubin,Indirect 0.6 MG/DL (0.0-1.0); Bilirubin,Total 0.9 MG/DL (0.2-1.0); Total Protein 5.8 G/DL (6.4-8.3)
[2020-03-21] MEDS: SODIUM CHLORIDE 0.45% 1,000 ML IV SCH (08:01)
[2020-03-21] MEDS: CALCIUM (CARBONATE) 600 MG TABLET PO SCH (09:16)
[2020-03-21] MEDS: ASCORBIC ACID 500 MG TABLET PO SCH (09:16)
[2020-03-21] MEDS: CLOPIDOGREL 75 MG TABLET PO SCH (09:17)
[2020-03-21] MEDS: MULTIVITAMIN (OCUVITE) TABLET PO SCH (09:17)
[2020-03-21] MEDS: ASPIRIN EC 81 MG TABLET PO SCH (09:17)
[2020-03-21] MEDS: INSULIN GLARGINE 100 UNIT/ML SUBCUT SCH (09:17)
[2020-03-21] MEDS: POTASSIUM CHLORIDE RIDER 10 MEQ in PREMIX 1 EACH IV PRN ×2 (10:25→11:46)
[2020-03-21] MEDS: cefTRIAXone 1,000 MG in SYRINGE 1 EACH IV SCH (12:54)
[2020-03-21] MEDS: GENTAMICIN 0.1% CREAM 15 GM TUBE TOP SCH (16:20)
[2020-03-21] MEDS: VITAMIN E 400 UNIT CAPSULE PO SCH (21:09)
[2020-03-21] MEDS: EZETIMIBE 10 MG TABLET PO SCH (21:09)
[2020-03-21] MEDS: LATANOPROST 0.005% OPH SOLN 2.5 ML BOTTLE RIGHT EYE SCH (21:09)
[2020-03-22] MEDS: INSULIN REGULAR 100 UNIT/ML SUBCUT SCH ×6 (01:03→20:55)
[2020-03-22] MEDS: ENOXAPARIN 60 MG/0.6 ML SYRINGE SUBCUT SCH ×2 (01:26→12:25)
[2020-03-22 06:39] LABS: Basophils % 0.4 % (0.0-0.8); Eosinophils % 0.7 % (0.00-10.9); Hemoglobin 12.9 GM/DL (12.0-16.0); Immature Granulocytes % 0.4 %; Immature Granulocytes Absolute 0.02 #; Lymphocytes # 0.7 10*3/uL (1.4-4.0); Lymphocytes % 12.6 % (21.3-54.2); Mean Corpuscular HGB Conc 33.9 GM/DL (32-36); Mean Corpuscular Volume 93.8 FL (87-102); Mean Platelet Volume 11.1 FL (9.6-12.0); Monocytes % 9.4 % (1.7-12.7); Neutrophils % 76.5 % (38.7-73.9); Platelet Count 166 T/CUMM (130-400); Red Blood Count 4.05 MC/CUMM (3.8-5.5); Red Cell Distribution Width 14.7 % (9.3-17.3); White Blood Count 5.6 T/CUMM (4-12)
[2020-03-22 06:59] LABS: Calcium 9.1 MG/DL (8.5-10.1); Osmolality,Calculated 272.5 MOS/KG (273-304)
[2020-03-22 07:13] LABS: Calcium 9.2 MG/DL (8.5-10.1); Osmolality,Calculated 273.5 MOS/KG (273-304)
[2020-03-22] MEDS: MULTIVITAMIN (OCUVITE) TABLET PO SCH (08:40)
[2020-03-22] MEDS: CLOPIDOGREL 75 MG TABLET PO SCH (08:40)
[2020-03-22] MEDS: CALCIUM (CARBONATE) 600 MG TABLET PO SCH (08:40)
[2020-03-22] MEDS: ASPIRIN EC 81 MG TABLET PO SCH (08:40)
[2020-03-22] MEDS: ASCORBIC ACID 500 MG TABLET PO SCH (08:40)
[2020-03-22] MEDS: KRILL OM DHA EPA PHOSPHO AST PO SCH (08:43)
[2020-03-22] MEDS: INSULIN GLARGINE 100 UNIT/ML SUBCUT SCH (09:00)
[2020-03-22] MEDS ORDERED: ONDANSETRON 4 MG/2 ML VIAL IV PRN (09:25)
[2020-03-22] MEDS ORDERED: ONDANSETRON 4 MG/2 ML VIAL ONE (09:30)
[2020-03-22] MEDS: GENTAMICIN 0.1% CREAM 15 GM TUBE TOP SCH (11:35)
[2020-03-22] MEDS: cefTRIAXone 1,000 MG in SYRINGE 1 EACH IV SCH (12:30)
[2020-03-22] MEDS: DOCUSATE SODIUM 100 MG CAPSULE PO SCH (20:36)
[2020-03-22] MEDS: EZETIMIBE 10 MG TABLET PO SCH (20:36)
[2020-03-22] MEDS: VITAMIN E 400 UNIT CAPSULE PO SCH (20:36)
[2020-03-22] MEDS: LATANOPROST 0.005% OPH SOLN 2.5 ML BOTTLE RIGHT EYE SCH (20:42)
[2020-03-23] MEDS: ENOXAPARIN 60 MG/0.6 ML SYRINGE SUBCUT SCH ×3 (00:45→13:13)
[2020-03-23 05:20] LABS: Basophils % 0.6 % (0.0-0.8); Eosinophils # 0.1 10*3/uL (0.0-0.87); Eosinophils % 1.1 % (0.00-10.9); Hematocrit 37.8 VOL% (35.7-47.0); Hemoglobin 12.6 GM/DL (12.0-16.0); Immature Granulocytes % 0.4 %; Immature Granulocytes Absolute 0.02 #; Lymphocytes # 0.7 10*3/uL (1.4-4.0); Lymphocytes % 14.1 % (21.3-54.2); Mean Corpuscular HGB Conc 33.3 GM/DL (32-36); Mean Corpuscular Volume 94.5 FL (87-102); Mean Platelet Volume 11.3 FL (9.6-12.0); Monocytes % 8.6 % (1.7-12.7); Neutrophils % 75.2 % (38.7-73.9); Platelet Count 163 T/CUMM (130-400); Red Cell Distribution Width 14.7 % (9.3-17.3); White Blood Count 4.7 T/CUMM (4-12)
[2020-03-23 05:39] LABS: Calcium 9.8 MG/DL (8.5-10.1); Osmolality,Calculated 281.5 MOS/KG (273-304)
[2020-03-23 05:45] LABS: Calcium 9.7 MG/DL (8.5-10.1); Osmolality,Calculated 282.5 MOS/KG (273-304)
[2020-03-23] MEDS: KRILL OM DHA EPA PHOSPHO AST PO SCH (08:23)
[2020-03-23] MEDS: INSULIN REGULAR 100 UNIT/ML SUBCUT SCH ×4 (08:33→20:52)
[2020-03-23] MEDS: INSULIN GLARGINE 100 UNIT/ML SUBCUT SCH (08:34)
[2020-03-23] MEDS: CALCIUM (CARBONATE) 600 MG TABLET PO SCH (08:36)
[2020-03-23] MEDS: ASCORBIC ACID 500 MG TABLET PO SCH (08:38)
[2020-03-23] MEDS: CLOPIDOGREL 75 MG TABLET PO SCH (08:40)
[2020-03-23] MEDS: DOCUSATE SODIUM 100 MG CAPSULE PO SCH ×2 (08:40→20:52)
[2020-03-23] MEDS: ASPIRIN EC 81 MG TABLET PO SCH (08:40)
[2020-03-23] MEDS: MULTIVITAMIN (OCUVITE) TABLET PO SCH (08:41)
[2020-03-23] MEDS ORDERED: METOPROLOL TARTRATE 25 MG TABLET PO SCH (09:00)
[2020-03-23] MEDS: cefTRIAXone 1,000 MG in SYRINGE 1 EACH IV SCH (13:24)
[2020-03-23] MEDS: GENTAMICIN 0.1% CREAM 15 GM TUBE TOP SCH (13:28)
[2020-03-23] MEDS: INSULIN ASPART PROTAMINE/ASPART 70/30 100 UNIT/ML SUBCUT SCH (17:22)
[2020-03-23] MEDS: EZETIMIBE 10 MG TABLET PO SCH (20:52)
[2020-03-23] MEDS: VITAMIN E 400 UNIT CAPSULE PO SCH (20:52)
[2020-03-23] MEDS: carvediloL 3.125 MG TABLET PO SCH (20:52)
[2020-03-23] MEDS: LATANOPROST 0.005% OPH SOLN 2.5 ML BOTTLE RIGHT EYE SCH (20:53)
[2020-03-24] MEDS: DEXTROSE 50% 25 GM/50 ML VIAL IV PRN ×2 (00:09→15:52)
[2020-03-24] MEDS: ENOXAPARIN 60 MG/0.6 ML SYRINGE SUBCUT SCH ×2 (00:28→11:39)
[2020-03-24 05:46] LABS: Basophils % 0.6 % (0.0-0.8); Eosinophils # 0.1 10*3/uL (0.0-0.87); Eosinophils % 1.2 % (0.00-10.9); Hematocrit 42.2 VOL% (35.7-47.0); Hemoglobin 13.7 GM/DL (12.0-16.0); Immature Granulocytes % 0.2 %; Immature Granulocytes Absolute 0.01 #; Lymphocytes # 0.8 10*3/uL (1.4-4.0); Lymphocytes % 15.7 % (21.3-54.2); Mean Corpuscular HGB Conc 32.5 GM/DL (32-36); Mean Corpuscular Volume 95.5 FL (87-102); Mean Platelet Volume 11.1 FL (9.6-12.0); Monocytes % 15.5 % (1.7-12.7); Neutrophils % 66.8 % (38.7-73.9); Platelet Count 184 T/CUMM (130-400); Red Blood Count 4.42 MC/CUMM (3.8-5.5); Red Cell Distribution Width 15.2 % (9.3-17.3); White Blood Count 4.8 T/CUMM (4-12)
[2020-03-24 05:52] LABS: Albumin 3.3 G/DL (3.4-5.0); Bilirubin,Direct 0.31 MG/DL (0.0-0.20); Bilirubin,Indirect 0.6 MG/DL (0.0-1.0); Bilirubin,Total 0.9 MG/DL (0.2-1.0); Calcium 9.6 MG/DL (8.5-10.1); Osmolality,Calculated 269.7 MOS/KG (273-304); Total Protein 7.1 G/DL (6.4-8.3)
[2020-03-24] MEDS: INSULIN REGULAR 100 UNIT/ML SUBCUT SCH ×4 (07:11→20:59)
[2020-03-24] MEDS: CLOPIDOGREL 75 MG TABLET PO SCH (08:13)
[2020-03-24] MEDS: carvediloL 3.125 MG TABLET PO SCH ×2 (08:13→20:57)
[2020-03-24] MEDS: ASPIRIN EC 81 MG TABLET PO SCH (08:13)
[2020-03-24] MEDS: ASCORBIC ACID 500 MG TABLET PO SCH (08:14)
[2020-03-24] MEDS: CALCIUM (CARBONATE) 600 MG TABLET PO SCH (08:14)
[2020-03-24] MEDS: MULTIVITAMIN (OCUVITE) TABLET PO SCH (08:14)
[2020-03-24] MEDS: KRILL OM DHA EPA PHOSPHO AST PO SCH (08:14)
[2020-03-24] MEDS: DOCUSATE SODIUM 100 MG CAPSULE PO SCH ×2 (08:16→20:57)
[2020-03-24] MEDS: INSULIN ASPART PROTAMINE/ASPART 70/30 100 UNIT/ML SUBCUT SCH ×2 (08:23→15:54)
[2020-03-24] MEDS: GENTAMICIN 0.1% CREAM 15 GM TUBE TOP SCH (09:46)
[2020-03-24] MEDS: cefTRIAXone 1,000 MG in SYRINGE 1 EACH IV SCH (13:28)
[2020-03-24] MEDS: VITAMIN E 400 UNIT CAPSULE PO SCH (20:57)
[2020-03-24] MEDS: EZETIMIBE 10 MG TABLET PO SCH (20:57)
[2020-03-24] MEDS: LATANOPROST 0.005% OPH SOLN 2.5 ML BOTTLE RIGHT EYE SCH (20:58)
[2020-03-25] MEDS: ENOXAPARIN 60 MG/0.6 ML SYRINGE SUBCUT SCH ×2 (00:15→11:40)
[2020-03-25 07:32] LABS: Basophils % 0.7 % (0.0-0.8); Eosinophils # 0.2 10*3/uL (0.0-0.87); Eosinophils % 3.4 % (0.00-10.9); Hematocrit 34.7 VOL% (35.7-47.0); Hemoglobin 11.8 GM/DL (12.0-16.0); Immature Granulocytes % 0.2 %; Immature Granulocytes Absolute 0.01 #; Lymphocytes # 0.6 10*3/uL (1.4-4.0); Mean Corpuscular Volume 94.6 FL (87-102); Mean Platelet Volume 10.8 FL (9.6-12.0); Monocytes % 10.3 % (1.7-12.7); Neutrophils % 71.4 % (38.7-73.9); Platelet Count 174 T/CUMM (130-400); Red Blood Count 3.67 MC/CUMM (3.8-5.5); Red Cell Distribution Width 15.2 % (9.3-17.3); White Blood Count 4.4 T/CUMM (4-12)
[2020-03-25 07:51] LABS: Calcium 9.9 MG/DL (8.5-10.1); Osmolality,Calculated 278.2 MOS/KG (273-304)
[2020-03-25] MEDS: INSULIN REGULAR 100 UNIT/ML SUBCUT SCH ×4 (08:09→20:32)
[2020-03-25] MEDS: INSULIN ASPART PROTAMINE/ASPART 70/30 100 UNIT/ML SUBCUT SCH ×2 (08:19→16:30)
[2020-03-25] MEDS: CALCIUM (CARBONATE) 600 MG TABLET PO SCH (08:20)
[2020-03-25] MEDS: ASCORBIC ACID 500 MG TABLET PO SCH (08:20)
[2020-03-25] MEDS: MULTIVITAMIN (OCUVITE) TABLET PO SCH (08:20)
[2020-03-25] MEDS: CLOPIDOGREL 75 MG TABLET PO SCH (08:21)
[2020-03-25] MEDS: ASPIRIN EC 81 MG TABLET PO SCH (08:21)
[2020-03-25] MEDS: DOCUSATE SODIUM 100 MG CAPSULE PO SCH ×2 (08:21→20:32)
[2020-03-25] MEDS: carvediloL 3.125 MG TABLET PO SCH ×2 (08:22→20:32)
[2020-03-25] MEDS: KRILL OM DHA EPA PHOSPHO AST PO SCH (08:22)
[2020-03-25] MEDS: GENTAMICIN 0.1% CREAM 15 GM TUBE TOP SCH (08:22)
[2020-03-25] MEDS: POLYETHYLENE GLYCOL POWDER 17 GM PACK PO SCH (09:46)
[2020-03-25] MEDS: cefTRIAXone 1,000 MG in SYRINGE 1 EACH IV SCH (13:39)
[2020-03-25] MEDS: DEXTROSE 50% 25 GM/50 ML VIAL IV PRN (18:50)
[2020-03-25] MEDS: LATANOPROST 0.005% OPH SOLN 2.5 ML BOTTLE RIGHT EYE SCH (20:32)
[2020-03-25] MEDS: EZETIMIBE 10 MG TABLET PO SCH (20:32)
[2020-03-25] MEDS: VITAMIN E 400 UNIT CAPSULE PO SCH (20:32)
[2020-03-26] MEDS: ENOXAPARIN 60 MG/0.6 ML SYRINGE SUBCUT SCH ×2 (00:01→12:24)
[2020-03-26] MEDS: DEXTROSE 50% 25 GM/50 ML VIAL IV PRN (00:04)
[2020-03-26 06:24] LABS: Basophils % 0.9 % (0.0-0.8); Eosinophils # 0.2 10*3/uL (0.0-0.87); Eosinophils % 3.8 % (0.00-10.9); Hemoglobin 11.2 GM/DL (12.0-16.0); Immature Granulocytes % 0.2 %; Immature Granulocytes Absolute 0.01 #; Lymphocytes # 0.9 10*3/uL (1.4-4.0); Lymphocytes % 20.4 % (21.3-54.2); Mean Corpuscular HGB Conc 32.9 GM/DL (32-36); Mean Corpuscular Volume 95.8 FL (87-102); Mean Platelet Volume 10.8 FL (9.6-12.0); Monocytes % 13.4 % (1.7-12.7); Neutrophils % 61.3 % (38.7-73.9); Platelet Count 189 T/CUMM (130-400); Red Blood Count 3.55 MC/CUMM (3.8-5.5); Red Cell Distribution Width 15.4 % (9.3-17.3); White Blood Count 4.5 T/CUMM (4-12)
[2020-03-26 06:48] LABS: Calcium 9.5 MG/DL (8.5-10.1); Osmolality,Calculated 275.1 MOS/KG (273-304)
[2020-03-26] MEDS: INSULIN REGULAR 100 UNIT/ML SUBCUT SCH ×2 (08:48→12:23)
[2020-03-26] MEDS: INSULIN ASPART PROTAMINE/ASPART 70/30 100 UNIT/ML SUBCUT SCH (08:49)
[2020-03-26] MEDS: DOCUSATE SODIUM 100 MG CAPSULE PO SCH (09:42)
[2020-03-26] MEDS: ASCORBIC ACID 500 MG TABLET PO SCH (09:42)
[2020-03-26] MEDS: POLYETHYLENE GLYCOL POWDER 17 GM PACK PO SCH (09:42)
[2020-03-26] MEDS: CALCIUM (CARBONATE) 600 MG TABLET PO SCH (09:42)
[2020-03-26] MEDS: MULTIVITAMIN (OCUVITE) TABLET PO SCH (09:43)
[2020-03-26] MEDS: KRILL OM DHA EPA PHOSPHO AST PO SCH (09:43)
[2020-03-26] MEDS: carvediloL 3.125 MG TABLET PO SCH (09:43)
[2020-03-26] MEDS: ASPIRIN EC 81 MG TABLET PO SCH (09:43)
[2020-03-26] MEDS: CLOPIDOGREL 75 MG TABLET PO SCH (09:43)
[2020-03-26] MEDS ORDERED: INSULIN ASPART PROTAMINE/ASPART 70/30 100 UNIT/ML SUBCUT SCH ×2 (10:54)
[2020-03-26] MEDS: GENTAMICIN 0.1% CREAM 15 GM TUBE TOP SCH (11:22)
[2020-03-26] MEDS ORDERED: BISACODYL 5 MG TABLET PO ONE (11:57)
[2020-03-26] MEDS ORDERED: MAGNESIUM HYDROXIDE SUSP 30 ML UDCUP PO ONE (11:58)
[2020-03-26 12:35] VITALS: BP 103/68
== END 2020-03-26 12:55 | disposition swing bed (61) | DRG 637 ==
LOC: EDBD → EDUNIT# → N.ED 10:10 → N.EDINP 12:03 → SUATTDRO 12:03 → N.ICU 12:39 → N.TELEN 03-22 12:43
PROVIDERS: ADMIT Internal Medicine; ATTEND Internal Medicine

== ENCOUNTER 2020-04-16 09:04 | Inpatient (IN) ==
[2020-04-16] MEDS ORDERED: SODIUM CHLORIDE 0.9% 1,000 ML IV STA (09:46)
[2020-04-16 10:00] LABS: Basophils % 0.7 % (0.0-0.8); Eosinophils # 0.2 10*3/uL (0.0-0.87); Eosinophils % 2.5 % (0.00-10.9); Hematocrit 35.8 VOL% (35.7-47.0); Hemoglobin 11.4 GM/DL (12.0-16.0); Immature Granulocytes Absolute 0.06 #; Lymphocytes # 0.7 10*3/uL (1.4-4.0); Lymphocytes % 11.5 % (21.3-54.2); Mean Corpuscular HGB Conc 31.8 GM/DL (32-36); Mean Corpuscular Volume 97.8 FL (87-102); Mean Platelet Volume 10.3 FL (9.6-12.0); Neutrophils % 74.3 % (38.7-73.9); Platelet Count 232 T/CUMM (130-400); Red Blood Count 3.66 MC/CUMM (3.8-5.5); Red Cell Distribution Width 15.8 % (9.3-17.3)
[2020-04-16 10:18] LABS: INR 1.1; PT Patient Result 11.6 SECS (9.8-11.9); Partial Thromboplastin Time 24.8 SECS (23.9-33.8)
[2020-04-16 10:21] LABS: Bilirubin,Urine Negative (Negative); Blood, Urine Negative (Negative); Glucose,Urine (UA) Negative (Negative); Hyaline Casts,Urine 16 /LPF (0-3); Ketones,Urine Negative (Negative); Mucus,Urine Occasional /LPF (Occasional); Nitrite,Urine Negative (Negative); Protein,Urine Negative; RBC,Urine 1 /HPF (0-4); Squamous Epithelial Cell,Urine Occasional /HPF (0-10); Urine Appearance CLEAR (Clear); Urine Color Yellow (Yellow); Urine Specific Gravity 1.013 (1.001-1.035); Urine Urobilinogen < 2.0 EU/DL (0.2-1.0); WBC,Urine <1 /HPF (0-6)
[2020-04-16 10:25] LABS: Barbiturates Screen,Urine Negative (Negative); Benzodiazepines Screen,Urine Negative (Negative); Cannabinoid Screen,Urine Negative (Negative); Opiate Screen,Urine Negative (Negative); Phencyclidine Screen,Urine Negative (Negative)
[2020-04-16] MEDS ORDERED: cefTRIAXone 1,000 MG in SODIUM CHLORIDE 0.9% 100 ML IV STA (10:32)
[2020-04-16] MEDS ORDERED: cefTRIAXone 1,000 MG in SYRINGE 1 EACH IV STA (10:34)
[2020-04-16 10:38] LABS: Alanine Aminotransferase 30 U/L (13-56); Albumin 3.2 G/DL (3.4-5.0); Alkaline Phosphatase 134 U/L (45-117); Aspartate Amino Transferase 49 U/L (0-37); Blood Urea Nitrogen 45 MG/DL (7-18); Calcium 8.5 MG/DL (8.5-10.1); Estimated Glom Filtration Rate 32 ML/MIN; Glucose 55 MG/DL (74-106); Osmolality,Calculated 279.1 MOS/KG (273-304); Total Protein 6.5 G/DL (6.4-8.3)
[2020-04-16 10:43] LABS: Troponin I 0.334 NG/ML (0.00-0.045)
[2020-04-16] MEDS ORDERED: DIGOXIN 0.5 MG/2 ML AMP IV STA (10:49)
[2020-04-16] MEDS ORDERED: POTASSIUM CHLORIDE 20 MEQ TABLET PO STA (10:51)
[2020-04-16] MEDS ORDERED: DEXTROSE 50% 25 GM/50 ML VIAL IV STA (11:04)
[2020-04-16] MEDS ORDERED: DEXTROSE 50% 25 GM/50 ML SYRINGE IV ONE (11:30)
[2020-04-16] MEDS ORDERED: POTASSIUM CHLORIDE RIDER 100 ML IV ONE ×2 (11:39→13:57)
[2020-04-16] MEDS: SODIUM CHLOR 0.9% KCL 20 MEQ 20 MEQ/1,000 ML BAG IV SCH ×4 (11:55→23:23)
[2020-04-16] MEDS ORDERED: GLUCAGON 1 MG VIAL IM PRN (12:14)
[2020-04-16] MEDS ORDERED: ONDANSETRON 4 MG/2 ML VIAL IV PRN (12:14)
[2020-04-16] MEDS ORDERED: hydrALAZINE 20 MG/1 ML VIAL IV PRN (12:14)
[2020-04-16] MEDS ORDERED: ALBUTEROL 2.5 MG/3 ML NEB RESP TX PRN (12:14)
[2020-04-16] MEDS ORDERED: DEXTROSE 50% 25 GM/50 ML VIAL IV PRN (12:14)
[2020-04-16] MEDS ORDERED: DOCUSATE SODIUM 100 MG CAPSULE PO PRN (12:14)
[2020-04-16] MEDS ORDERED: ACETAMINOPHEN 325 MG TABLET PO PRN (12:14)
[2020-04-16] MEDS ORDERED: POTASSIUM CHLORIDE RIDER 10 MEQ in PREMIX 1 EACH IV PRN (12:18)
[2020-04-16] MEDS ORDERED: metOLazone 5 MG TABLET PO PRN (12:19)
[2020-04-16] MEDS: ENOXAPARIN 60 MG/0.6 ML SYRINGE SUBCUT SCH (16:52)
[2020-04-16] MEDS: INSULIN LISPRO 100 UNIT/ML SUBCUT SCH ×2 (16:52→21:52)
[2020-04-16 17:40] LABS: Calcium 8.8 MG/DL (8.5-10.1); Osmolality,Calculated 274.5 MOS/KG (273-304)
[2020-04-16] MEDS: ASCORBIC ACID 500 MG TABLET PO SCH (20:16)
[2020-04-16] MEDS: SIMVASTATIN 40 MG TABLET PO SCH (20:16)
[2020-04-16] MEDS ORDERED: EZETIMIBE 10 MG TABLET PO SCH (21:00)
[2020-04-16] MEDS ORDERED: ISOSORBIDE MONONITRATE 30 MG TABLET PO SCH (21:00)
[2020-04-16] MEDS ORDERED: FUROSEMIDE 40 MG TABLET PO SCH (21:00)
[2020-04-17] MEDS: SODIUM CHLOR 0.9% KCL 20 MEQ 20 MEQ/1,000 ML BAG IV SCH ×4 (03:45→18:01)
[2020-04-17] MEDS: ENOXAPARIN 60 MG/0.6 ML SYRINGE SUBCUT SCH (03:45)
[2020-04-17 05:26] LABS: Basophils # 0.1 10*3/uL (0.0-0.2); Eosinophils # 0.1 10*3/uL (0.0-0.87); Eosinophils % 1.8 % (0.00-10.9); Hematocrit 37.8 VOL% (35.7-47.0); Immature Granulocytes % 0.4 %; Immature Granulocytes Absolute 0.03 #; Lymphocytes # 0.6 10*3/uL (1.4-4.0); Mean Corpuscular HGB Conc 31.7 GM/DL (32-36); Mean Corpuscular Volume 98.4 FL (87-102); Monocytes % 8.3 % (1.7-12.7); Neutrophils % 79.5 % (38.7-73.9); Platelet Count 225 T/CUMM (130-400); Red Blood Count 3.84 MC/CUMM (3.8-5.5); Red Cell Distribution Width 15.9 % (9.3-17.3); White Blood Count 7.1 T/CUMM (4-12)
[2020-04-17 05:55] LABS: Calcium 8.1 MG/DL (8.5-10.1); Osmolality,Calculated 273.7 MOS/KG (273-304)
[2020-04-17] MEDS: INSULIN LISPRO 100 UNIT/ML SUBCUT SCH ×4 (08:05→20:16)
[2020-04-17] MEDS: CALCIUM (CARBONATE) 600 MG TABLET PO SCH (10:12)
[2020-04-17] MEDS: ASPIRIN EC 81 MG TABLET PO SCH (10:12)
[2020-04-17] MEDS: CLOPIDOGREL 75 MG TABLET PO SCH (10:13)
[2020-04-17] MEDS: PANTOPRAZOLE 40 MG TABLET PO SCH (10:13)
[2020-04-17] MEDS: ASCORBIC ACID 500 MG TABLET PO SCH ×2 (10:13→21:05)
[2020-04-17] MEDS ORDERED: ENOXAPARIN 60 MG/0.6 ML SYRINGE SUBCUT SCH (12:00)
[2020-04-17] MEDS: SIMVASTATIN 40 MG TABLET PO SCH (21:06)
[2020-04-18 06:40] LABS: Basophils # 0.1 10*3/uL (0.0-0.2); Eosinophils # 0.2 10*3/uL (0.0-0.87); Eosinophils % 3.2 % (0.00-10.9); Hematocrit 34.6 VOL% (35.7-47.0); Hemoglobin 10.9 GM/DL (12.0-16.0); Immature Granulocytes % 0.7 %; Immature Granulocytes Absolute 0.04 #; Lymphocytes # 0.9 10*3/uL (1.4-4.0); Lymphocytes % 14.4 % (21.3-54.2); Mean Corpuscular HGB Conc 31.5 GM/DL (32-36); Mean Platelet Volume 10.6 FL (9.6-12.0); Monocytes % 13.2 % (1.7-12.7); Neutrophils % 67.5 % (38.7-73.9); Platelet Count 235 T/CUMM (130-400); Red Blood Count 3.53 MC/CUMM (3.8-5.5); Red Cell Distribution Width 15.9 % (9.3-17.3); White Blood Count 5.9 T/CUMM (4-12)
[2020-04-18] MEDS: SODIUM CHLOR 0.9% KCL 20 MEQ 20 MEQ/1,000 ML BAG IV SCH (07:04)
[2020-04-18 07:06] LABS: Calcium 8.3 MG/DL (8.5-10.1); Osmolality,Calculated 278.5 MOS/KG (273-304)
[2020-04-18 07:24] LABS: Calcium 8.3 MG/DL (8.5-10.1)
[2020-04-18] MEDS: INSULIN LISPRO 100 UNIT/ML SUBCUT SCH (07:44)
[2020-04-18 08:22] VITALS: BP 102/55
[2020-04-18] MEDS: ASCORBIC ACID 500 MG TABLET PO SCH (08:48)
[2020-04-18] MEDS: ASPIRIN EC 81 MG TABLET PO SCH (08:48)
[2020-04-18] MEDS: CALCIUM (CARBONATE) 600 MG TABLET PO SCH (08:49)
[2020-04-18] MEDS: PANTOPRAZOLE 40 MG TABLET PO SCH (08:49)
[2020-04-18] MEDS: CLOPIDOGREL 75 MG TABLET PO SCH (08:49)
[2020-04-18] MEDS ORDERED: ENOXAPARIN 40 MG/0.4 ML SYRINGE SUBCUT SCH (09:00)
== END 2020-04-18 11:45 | disposition hospice, home (50) | DRG 309 ==
LOC: EDUNIT# → N.ED 09:04 → N.EDINP 12:14 → SUATTDRO 12:14 → N.CC 15:59 → N.TELES 04-17 12:21
PROVIDERS: ADMIT Internal Medicine; ATTEND Family Medicine